=== PATIENT | female | born 1990 | race Caucasian/White ===

== ENCOUNTER 2024-12-04 15:17 | Observation (INO) | payer BC, SELFPAY ==
[2024-11-07 11:17] LABS: Hematocrit 39.5 % (37-47); Hemoglobin 12.0 g/dL (12.0-15.0); Immature Granulocytes Count 0.020 X10^3/uL (0.0-0.0); Mean Corp Hgb Conc 30.4 g/dL (32-36); Mean Corpuscular Volume 65.0 fL (81-99); Mean Platelet Vol. 10.7 fl (6.2-12.0); NRBC Flagged by Analyzer 0 % (0-5); Platelet Count 416 K/mm3 (150-450); RBC Distribution Width CV 17.2 % (11.6-14.6); RBC Distribution Width SD 36.4 fl (35.1-43.9); Red Blood Count 6.08 M/mm3 (4.2-5.4); White Blood Count 7.0 K/mm3 (4.4-11.0)
[2024-11-07 12:06] LABS: AST(SGOT) 20 U/L (<=31); Alanine Aminotransfer ALT/SGPT 12 U/L (<=34); Albumin, Serum 4.7 g/dL (3.5-5.0); Alkaline Phosphatase 48 U/L (35-104); Anion Gap 11 (5-15); BUN 10 mg/dL (4-19); BUN/Creat Ratio 15.5 RATIO (10-20); Calcium,Total 9.2 mg/dL (7.6-11.0); Carbon Dioxide 24.0 mmol/L (21.0-32.0); Chloride 106 mmol/L (98-108); Globulin 2.9 g/dL (2.2-4.2); Glucose 99 mg/dL (70-99); Potassium 4.5 mmol/L (3.3-5.1)
[2024-12-04] VITALS (16 sets, daily range): BP systolic 100–126; BP diastolic 52–93; PULSE 59–144; RESP 16–20; TEMP 36.1–37.6; O2SAT 95–100; BMI 31.2
--- OUTSIDE RECORDS SUMMARY | 2024-12-04 05:41 | XMS RPT_ITS | CCD ---
Author Organization [facility] CliniSyde Care Team Providers Care Regional Environmental Manager Name Role Phone MARY CAPPS Referring Unavailable MARY CAPPS Primary Care Unavailable Melissa Madsen DO Primary Care Provider ESTEFANY ADAIR Attending Unavailable MELISSA MADSEN Primary Care Unavailable ESTEFANY ADAIR Referring Unavailable MELISSA MADSEN Primary Care Unavailable ESTEFANY ADAIR Referring Unavailable ESTEFANY ADAIR Attending Unavailable MELISAS MADSEN Primary Care Unavailable ESTEFANY ADAIR Referring Unavailable ESTEFANY ADAIR Attending Unavailable Dr. Charanjit Cortes MD Primary Care Provider Dr. Charanjit Luke MD Referring Provider Dr. Rohith Oliveira MD Attending Provider [phone] Dr. Charanjit Cortes MD Primary Care Physician Dr. Charanjit Saab MD Referring Provider Dr. Rohith Oliveira MD Attending Physician [phone] MELISSA MADSEN Primary Care Unavailable ANDREW MEYER MD Attending Unavailable MELISSA MADSEN Primary Care Unavailable MELISSA MADSEN Primary Care Unavailable Rohith Roche Attending Unavailable Charanjit Cortes Primary Care Unavailable Charanjit Cortes Referring Unavailable Charanjit Cortes Primary Care Unavailable Charanjit Cortes Referring Unavailable Rohith Roche Attending Unavailable Rohith Roche Attending Unavailable Rohith Roche Referring Unavailable Maye Moore Primary Care Unavailable Rohith Roche Admitting Unavailable Medications Current Medications Medication Drug Class(es) Dates Sig (Normalized) Sig (Original) 24 hr buPROPion hydrochloride 300 mg extended release oral tablet (2 sources) Aminoketone Start: 06-28-2024 take 1 tablet by mouth once daily in the morning Bupropion Hcl 300 mg tablet extended release 24 hr Active 300 mg PO EVERY MORNING June 28, 2024 12:00am Complies with drug therapy Norethindrone-E.Estra diol-Iron (2 sources) Estrogen Start: 06-28-2024 take 1 tablet by mouth once daily Norethindrone-E.E stradiol-Iron (Lo Loestrin Fe) 1 mg-10 mcg (24)/10 mcg (2) tablet Active 1 {tbl} PO daily June 28, 2024 12:00am Complies with drug therapy Start: 06-28-2024 take 1 tablet by nadine th once daily Norethindrone-E.Estradiol-Iron (Lo Loest rin Fe) 1 mg-10 mcg (24)/10 mcg (2) tablet Active 1 {tbl} PO daily June 28, 2024 12:00am phentermine hydrochloride 37.5 mg oral tablet (2 sources) Sympathomimetic Amine Anorectic Start: 06-28-2024 take 1 tablet by mouth once daily in the morning Phentermine 37.5 mg tablet Active 37.5 mg PO EVERY MORNING June 28, 2024 12:00am Complies with drug therapy topiramate 25 mg oral tablet (2 sources) Start: 06-28-2024 take 1 tablet by mouth at bedtime Topiramate 25 mg tablet Active 25 mg PO AT BEDTIME June 28, 2024 12:00am Complies with drug therapy Problems Problem Classification Problem Date Documented Da te Episodic/Chronic Deficiency and other anemia (3 sources) Beta thalassemia trait; Translations: [Thalassemia minor] 06-28-2024 Chronic Deficiency and other anemia (2 sources) Thalassemia minor; Translations: [Thalassemia minor] Onset: 11-08-2024 Chronic Nonmalignant breast conditions (6 sources) Large breast; Translations: [Hypertrophy of breast] Onset: 11-08-2024 06-28-2024 Episodic Other screening for suspected conditions (not mental disorders or infectious disease) (9 sources) Patient encounter status; Translations: [Encounter for screening mammogram for malignant neoplasm of breast] Onset: 01-01-2024 01-01-2024 Episodic Other skin disorders (1 source) Localized swelling, mass and lump, neck; Translations: [Localized swelling, mass and lump, neck] Onset: 07-05-2023 Episodic Residual codes; unclassified (5 sources) Other specified personal risk factors, not elsewhere classified; Translations: [Other specified personal history presenting hazards to health] Onset: 01-01-2024 01-01-2024 Episodic Results Test Name Value Interpretation Reference Range Facility [facility] Physician Progress No alberto 11-13-2024 [facility] Physician Progress Note SUSY ROACH :1990 Registration Date:11/13/2024 Assessment/Plan Patient is a 34-year-old female with a history of heavy menses and family history of breast cancer presenting for management of PCOS. This Visit Diagnosis 1. Well woman exam/(Z01.419: Encounter for gynecological examination (general) (routine) without abnormal findings) Ordered: [facility] Preventive Est Age 18-39 [address], 11/13/2024 10:37:00 EDT, Well woman exam / BRCA gene mutation negative 2. BRCA gene mutation negative/(Z13.71: Encounter for nonprocreative screening for genetic disease carrier status) Ordered: [facility] Preventive Est Age 18-39 [address], 11/13/2024 10:37:00 EDT, Well woman exam / BRCA gene mutation negative PCOS (polycystic ovarian syndrome)/(E28.2: Polycystic ovarian syndrome) - PCOS with insulin resistance, history of heavy menses, weight gain, and prior positive response to Metformin. - Initiated Metformin 500 mg PO once daily with largest meal; instructed to increase to twice daily if tolerated without significant diarrhea. - Advised to avoid dietary sugar due to intolerance and to monitor for gastrointestinal side effects, especially diarrhea. - Reassured patient that Metformin will not interfere with planned breast reduction surgery. - Ordered genetic testing as discussed. - Follow-up in 1 year or sooner if symptoms worsen. Ordered: metFORMIN = Glucophage(metFORMIN 500 mg oral tablet), 500 mg= 1 tabs, ORAL, BID, 11 refills Medication Reconciliation What How Much When Why Instructions New metFORMIN = Glucophage (metFORMIN 500 mg oral tablet) 1 Tabs Oral TWICE A DAY PCOS (polycystic ovarian syndrome) Refills: 11 Ordering Physician: BETSY BENSON FACOG, ANDREW Pickup at [facility] Pharmacy Information [facility]: [address], [place] [id number] [phone] What How Much When Why Comments Stop Taking ethinyl estradiol-norethindrone (Lo Loestrin Fe oral tablet) 1 Tabs Oral DAILY Heavy menses Ordering Physician: BETSY RICHARDSOGANDREW Stop Taking FLUoxetine (FLUoxetine 10 mg oral capsule) Special Instructions: 30 EA, 0 Refill(s), TAKE 1 CAPSULE BY MOUTH ONCE DAILY Stop Taking multivitamin 1 Tabs Oral DAILY Stop Taking Non-Formulary Med (Herbal Supplement) Special Instructions: 30 EA, 0 Refill(s), TAKE 1 TABLET BY MOUTH IN THE MORNING Chief Complaint Here for an annual exam - quit the BC would have a period then BTB scheduled for Breast reduction 12/04/24 LMP 10/30/24 History of Present Illness Disclaimer: The content of this note was generated by an artificial intelligence (AI) language model version 25.Q3.2.0 Patient consented to the use of AI The patient is a 34-year-old female with a history of PCOS, presenting for an annual well woman exam. PCOS and related symptoms The patient reports a history of PCOS with symptoms including heavy periods, random hair growth, and easy weight gain. She describes gaining weight rapidly after discontinuing Mirena, Wegovy, and various forms of control, and notes that she has not been able to lose the weight since. She previously used Metformin after her last , which resulted in the return of her periods and improvement in her symptoms, without significant side effects except for gastrointestinal symptoms when consuming unhealthy foods. She expresses frustration with her body type and believes that insulin resistance significantly affects her weight and hormonal health. She also reports strong sugar cravings, particularly during periods of stress, and notes that her mental health was poor when her periods were irregular. Family history is notable for her mother and grandmother being pre-diabetic despite having smaller body types. She is not currently using any control. Breast health, well woman exam, and family history The patient is scheduled for breast reduction surgery on December 04. She reports a long-standing history of large breasts, which have contributed to back pain and difficulty finding properly fitting bras, especially after three pregnancies and nursing. She recalls being self-conscious about her breast size since adolescence and attributes some of her back discomfort to compensatory postures. She has had three C-sections. Her last mammogram required repeat imaging in February due to overlapping breast tissue, and she was advised to return to routine screening. She underwent BRCA gene testing, which was negative. Family history is notable for pre-diabetes on her mother's side. Review of Systems Constitutional: Positive for weight gain. Head: Negative for mental health concerns. Genitourinary: Positive for heavy periods. Positive for irregular periods. Musculoskeletal: Positive for back pain. Skin: Positive for random hair growth. Physical Exam Vitals & Measurements BP: 110/70 HT: 160 cm WT: 80.1 kg BMI: 31.29 LMP: 10/30/2024 00:00 EDT Depression Screening Scor (more content not included)... Normal [facility] CBC W/Diff, Automatedon 10-15 Absolute Lymph 3.01 X10 3/uL Normal 0.83-4.51 [facility] Comment on above: Performed By: #### L 501.9985, L500.4050, L100.0100 #### [facility] [address] [place], [address] Absolute Neut 3.2 X10 3/uL Normal 2.0-7.7 [facility] Comment on above: Performed By: #### L 501.9985, L500.4050, L100.0100 #### [facility] [address] [place], [address] Basophils/100 WBC (Bld) 1.0 % Normal 0-1 [facility] Comment on above: Performed By: #### L 501.9985, L500.4050, L100.0100 #### [facility] [address] [place], [address] Eosinophils/100 WBC (Bld) 3.2 % Normal 0-5 [facility] Comment on above: Performed By: #### L 501.9985, L500.4050, L100.0100 #### [facility] [address] [place], [address] Erythrocyte distribution width (RBC) [Ratio] 17.2 % High 11.6-14.6 [facility] Comment on above: Performed By: #### L 501.9985, L500.4050, L100.0100 #### [facility] [address] [place], [address] Hematocrit (Bld) [Volume fraction] 39.5 % Normal 37-47 [facility] Comment on above: Performed By: #### L 501.9985, L500.4050, L100.0100 #### [facility] [address] [place], [address] Hemoglobin (Bld) [Mass/Vol] 12.0 g/dL Normal 12.0-15.0 [facility] Comment on above: Performed By: #### L 501.9985, L500.4050, L100.0100 #### [facility] [address] [place], [address] IG% 0.300 Normal 0.0-0.9 [facility] Comment on above: Result Comment: IG% - Immature Granulocytes (promyelocytes, myelocytes and metamyelocytes) > 1% indicates that a LEFT SHIFT is Present. Performed By: #### L 501.9985, L500.4050, L100.0100 #### [facility] [address] [place], [address] Lymphocytes/100 WBC (Bld) 43.2 % High 19-41 [facility] Comment on above: Performed By: #### L 501.9985, L500.4050, L100.0100 #### [facility] [address] [place], [address] MCH (RBC) [Entitic mass] 19.7 pg Low 27.0-32.0 [facility] Comment on above: Performed By: #### L 501.9985, L500.4050, L100.0100 #### [facility] [address] [place], [address] MCHC (RBC) [Mass/Vol] 30.4 g/dL Low 32-36 [facility] Comment on above: Performed By: #### L 501.9985, L500.4050, L100.0100 #### [facility] [address] [place], [address] MCV (RBC) [Entitic vol] 65.0 fL Low 81-99 [facility] Comment on above: Performed By: #### L 501.9985, L500.4050, L100.0100 #### [facility] [address] [place], [address] Monocytes/100 WBC (Bld) 5.9 % Normal 0-10 [facility] Comment on above: Performed By: #### L 501.9985, L500.4050, L100.0100 #### [facility] [address] [place], [address] Neutrophils/100 WBC (Bld) 46.4 % Low 47-70 [facility] Comment on above: Performed By: #### L 501.9985, L500.4050, L100.0100 #### [facility] [address] [place], [address] Nucleated RBC (Bld) [#/Vol] 0 10*3/uL Normal 0-5 [facility] Comment on above: Performed By: #### L 501.9985, L500.4050, L100.0100 #### [facility] [address] [place], [address] Platelet mean volume (Bld) [Entitic vol] 10.7 fL Normal 6.2-12.0 [facility] Comment on above: Performed By: #### L 501.9985, L500.4050, L100.0100 #### [facility] [address] [place], [address] Platelets (Bld) [#/Vol] 416 10*3/uL Normal 150-450 [facility] Comment on above: Performed By: #### L 501.9985, L500.4050, L100.0100 #### [facility] [address] [place], [address] RBC (Bld) [#/Vol] 6.08 10*6/uL High 4.2-5.4 [facility] Comment on above: Performed By: #### L 501.9985, L500.4050, L100.0100 #### [facility] [address] [place], [address] RDW SD 36.4 fl Normal 35.1-43.9 [facility] Comment on above: Performed By: #### L 501.9985, L500.4050, L100.0100 #### [facility] [address] [place], [address] WBC (Bld) [#/Vol] 7.0 10*3/uL Normal 4.4-11.0 [facility] Comment on above: Performed By: #### L 501.9985, L500.4050, L100.0100 #### [facility] [address] [place], [address] Comprehensive Metabolic [facility] 11-07-2024 Albumin [Mass/Vol] 4.7 g/dL Normal 3.5-5.0 [facility] Comment on above: Performed By: #### L 501.9985, L500.4050, L100.0100 #### [facility] [address] [place], [address] Albumin/Globulin [Mass ratio] 1.6 {ratio} Normal 0.9-2.4 [facility] Comment on above: Performed By: #### L 501.9985, L500.4050, L100.0100 #### [facility] [address] [place], [address] ALK PHOS 48 U/L Normal 35-104 [facility] Comment on above: Performed By: #### L 501.9985, L500.4050, L100.0100 #### [facility] [address] [place], [address] ALT [Catalytic activity/Vol] 12 U/L Normal <=34 [facility] Comment on above: Performed By: #### L 501.9985, L500.4050, L100.0100 #### [facility] [address] [place], [address] AST [Catalytic activity/Vol] 20 U/L Normal <=31 [facility] Comment on above: Performed By: #### L 501.9985, L500.4050, L100.0100 #### [facility] [address] [place], [address] Bilirubin [Mass/Vol] 0.27 mg/dL Normal 0.00-1.30 [facility] Comment on above: Performed By: #### L 501.9985, L500.4050, L100.0100 #### [facility] [address] [place], [address] BUN/CRE 15.5 RATIO Normal 10-20 [facility] Comment on above: Performed By: #### L 501.9985, L500.4050, L100.0100 #### [facility] [address] [place], [address] Calcium [Mass/Vol] 9.2 mg/dL Normal 7.6-11.0 [facility] Comment on above: Performed By: #### L 501.9985, L500.4050, L100.0100 #### [facility] [address] [place], [address] Chloride [Moles/Vol] 106 mmol/L Normal 98-108 [facility] Comment on above: Performed By: #### L 501.9985, L500.4050, L100.0100 #### [facility] [address] [place], [address] CO2 [Moles/Vol] 24.0 mmol/L Normal 21.0-32.0 [facility] Comment on above: Performed By: #### L 501.9985, L500.4050, L100.0100 #### [facility] [address] [place], [address] Creatinine [Mass/Vol] 0.67 mg/dL Low 0.70-1.20 [facility] Comment on above: Performed By: #### L 501.9985, L500.4050, L100.0100 #### [facility] [address] [place], [address] GAP 11 Normal 5-15 [facility] Comment on above: Performed By: #### L 501.9985, L500.4050, L100.0100 #### [facility] [address] [place], [address] GFR/1.73 sq M.predicted among non-blacks MDRD (S/P/Bld) [Vol rate/Area] 118 mL/min/{1.73_m2} Normal >60 [facility] Comment on above: Result Comment: mL/m in/1.73m2 CKD-EPI Creatinine Equation (2020) Performed By: #### L 501.9985, L500.4050, L100.0100 #### [facility] [address] [place], [address] Globulin (S) [Mass/Vol] 2.9 g/dL Normal 2.2-4.2 [facility] Comment on above: Performed By: #### L 501.9985, L500.4050, L100.0100 #### [facility] [address] [place], [address] Glucose [Mass/Vol] 99 mg/dL Normal 70-99 [facility] Comment on above: Performed By: #### L 501.9985, L500.4050, L100.0100 #### [facility] [address] [place], [address] Potassium [Moles/Vol] 4.5 mmol/L Normal 3.3-5.1 [facility] Comment on above: Performed By: #### L 501.9985, L500.4050, L100.0100 #### [facility] [address] [place], [address] Sodium [Moles/Vol] 140 mmol/L Normal 133-145 [facility] Comment on above: Performed By: #### L 501.9985, L500.4050, L100.0100 #### [facility] [address] [place], [address] T PROT 7.7 g/dL Normal 5.9-8.4 [facility] Comment on above: Performed By: #### L 501.9985, L500.4050, L100.0100 #### [facility] [address] [place], [address] Urea nitrogen [Mass/Vol] 10 mg/dL Normal 4-19 [facility] Comment on above: Performed By: #### L 501.9985, L500.4050, L100.0100 #### [facility] [address] [place], [address] Hemoglobin A1con 11-07-2024 HbA1c (Bld) [Mass fraction] 5.5 % Normal <=5.6 [facility] Comment on above: Result Comment: Norm al < 5.7 % Prediabetic 5.7 - 6.4 % Diabetic >or= 6.5 % Please note range changes. Performed By: #### L 501.9985, L500.4050, L100.0100 #### [facility] [address] [place], [address] Plastic Surgery Visit Report on 11-07-2024 Plastic Surgery Visit Report [facility]astic Re[facility]ive Surgery [address], [address] [place], [place] [id number] OFFICE VISIT Date of Service: 11/07/24 MR#: [id number] Acct: [id number] Name: SUSY ROACH Rep #: [id number] : 1990 Provider: Dr. Rohith Roche MD Age/Sex: 34/F Location: [facility] Status: Signed Intake Vital Signs 06/28/24 10:08 11/07/24 09:35 Height 5 ft 3 in Weight: 153 lb BMI 27.1 BP 118/80 116/81 H Blood Pressure Location Rt brachial Rt brachial Position Sitting Sitting Respiration 18 18 Pulse 96 104 H Pulse Source Monitor Monitor Pulse Oximetry (%) 99 98 Oxygen Delivery Method room air room air Intake Visit Reasons: f/u- pre op Chief Complaint: Breast reduction Is patient in pain?: No Allergies No Known Allergies Allergy (Unverified 11/07/24 09:35) Medications ???Medication ???Instructions ???Recorded ???Confirmed ???Type bupropion HCl 300 mg 24 hr tablet, 300 mg PO QAM 06/28/24 11/07/24 History extended release norethindrone 1 mg-ethinyl 1 tab PO QDAY 06/28/24 11/07/24 Hi story estradiol 10 mcg (24)-iron 10 mcg(2) tablet (Lo Loestrin Fe) phentermine 37.5 mg tablet 37.5 mg PO QAM 06/28/24 11/07/24 H istory topiramate 25 mg tablet 25 mg PO QHS 06/28/24 11/07/24 His tory PFSH Medical History Beta thalassemia trait Surgical History History of Social History Smoking Status: Former smoker HPI f/u- pre op Details: Breast Reduction Pt c/o: [Macromastia] [Intertrigo] [Shoulder Pain] [Shoulder Grooves]??? [Upper back pain] [Poor Posture] ? Physical therapy for back pain: [ N] ??? Chiropractic treatment: [Y ] ??? Home exercise: [ Y]? NSAID use:[Y ]? Skin ulceration: [ Y] ??? Topical or oral antifungal agents: [Y ] ??? Participation in medically supervised weight loss program: [Y ] ??? More info: Patient has seen a chiropractor for her back problems secondary to the macromastia and this has not helped much. Patient also has significant rashes in the summertime underneath the breasts that are refractory to powders and cause severe skin irritation and pain. ??? Prior breast surgeries: [N ] PAIN: aching pain of upper back ??? BRA SIZE: [DDD ] ??? DESIRED??? SIZE: [ C] ??? OB HISTORY: PARA: [3 ] :??? [Y ] PLAN FOR FUTURE PREGNANCIES: [N ] ??? HISTORY OF BREAST DISEASE: [ N] PRIOR MAMMOGRAM: Patient has had a mammogram for cancer screening. FAMILY HISTORY OF BREAST CANCER: Grandmother and her aunt on her father's side had breast cancer. Patient is a former smoker has not smoked for several years She has beta thalassemia trait does not receive any treatment for this Patient is currently on weight loss medication phentermine and topiramate Patient has been stable and her weight however between 145 and 155 for the past year and is not interested in losing a significant amount of extra weight at this point. BMI is 27.1 CURRENT ENCOUNTER, 07 Nov 2024: Patient doing well overall. She has been approved for a breast reduction by her insurance company. She is here to talk about preoperative labs and PCP clearance, as well as the risks benefits and alternatives to surgery. Exam Details EXAM: A O x3, NAD Female charge 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 L: Grade [ 3] Medially displaced nipple: [No ] Note: measurements are in centimeters SN to NIPPLE:? L: [ 31]?R: [ 31] IMF to NIPPLE: ? L: [13 ] ? R: [ 14] WIDTH: ? L: [ 17] ? R: [18 ] I did not feel any new masses or lymphadenopathy on today's exam and the exam is stable since last visit Coding Level of Care Code No Charge Diagnoses Macromastia N62 Comment This was a visit for preoperative counseling, decision already made to have surgery Assessment and Plan (No Qualifiers) Assessment and Plan (1) Macromastia: Status: Acute Plan: I talked the patient extensively again today about breast reduction surgery. Based on the Schnur scale, I could remove 390 g of breast tissue from each side. Patient and I talked about the risk of wound healing complications as well as the risks of nipple ischemia/necrosis (with nipple wound healing problems), possibility of need for free nipple grafts, possibility of alteration in breast sensation and alteration in nipple sensation/loss of nipple sensation and permanent numbness, as well as fat necrosis, infection, bleeding, worsening of pain, failur (more content not included)... Normal [facility] Plastic Surgery Visit Report on 06-28-2024 Plastic Surgery Visit Report [facility] Surgery [address], [address] [place] [address] OFFICE VISIT Date of Service: 06/28/24 MR#: [id number] Acct: [id number] Name: SUSY ROACH Rep #: [id number] : 1990 Provider: Dr. Rohith Roche MD Age/Sex: 33/F Location: [facility] Status: Signed Intake Vital Signs 06/28/24 10:08 Height 5 ft 3 in Weight: 153 lb BMI 27.1 BP 118/80 Blood Pressure Location Rt brachial Position Sitting Respiration 18 Pulse 96 Pulse Source Monitor Pulse Oximetry (%) 99 Oxygen Delivery Method room air Intake Visit Reasons: BREAST REDUCTION Chief Complaint: Breast reduction Allergies No Known Allergies Allergy (Unverified 06/28/24 09:57) Medications ???Medication ???Instructions ???Recorded ???Confirmed ???Type bupropion HCl 300 mg 24 hr tablet, 300 mg PO QAM 06/28/24 06/28/24 History extended release norethindrone 1 mg-ethinyl 1 tab PO QDAY 06/28/24 06/28/24 Hi story estradiol 10 mcg (24)-iron 10 mcg(2) tablet (Lo Loestrin Fe) phentermine 37.5 mg tablet 37.5 mg PO QAM 06/28/24 06/28/24 H istory topiramate 25 mg tablet 25 mg PO QHS 06/28/24 06/28/24 His tory [facility] Medical History (Updated 06/28/24 @ 10:[address] Rohith Roche MD) Beta thalassemia trait Surgical History (Updated 06/28/24 @ 09:56 by Carol Alczaar) History of Social History (Updated 06/28/24 @ 09:57 by Carol Alcazar) Smoking Status: Former smoker HPI BREAST REDUCTION Details: Breast Reduction Pt c/o: [Macromastia] [Intertrigo] [Shoulder Pain] [Shoulder Grooves]??? [Upper back pain] [Poor Posture] ? Physical therapy for back pain: [ N] ??? Chiropractic treatment: [Y ] ??? Home exercise: [ Y]? NSAID use:[Y ]? Skin ulceration: [ Y] ??? Topical or oral antifungal agents: [Y ] ??? Participation in medically supervised weight loss program: [Y ] ??? More info: Patient has seen a chiropractor for her back problems secondary to the macromastia and this has not helped much. Patient also has significant rashes in the summertime underneath the breasts that are refractory to powders and cause severe skin irritation and pain. ??? Prior breast surgeries: [N ] PAIN: aching pain of upper back ??? BRA SIZE: [DDD ] ??? DESIRED??? SIZE: [ C] ??? OB HISTORY: PARA: [3 ] :??? [Y ] PLAN FOR FUTURE PREGNANCIES: [N ] ??? HISTORY OF BREAST DISEASE: [ N] PRIOR MAMMOGRAM: Patient has had a mammogram for cancer screening. FAMILY HISTORY OF BREAST CANCER: Grandmother and her aunt on her father's side had breast cancer. Patient is a former smoker has not smoked for several years She has beta thalassemia trait does not receive any treatment for this Patient is currently on weight loss medication phentermine and topiramate Patient has been stable and her weight however between 145 and 155 for the past year and is not interested in losing a significant amount of extra weight at this point. BMI is 27.1 ROS General General: Yes good health; No fatigue, fever(s) or weight loss HENMT HENMT: No rhinitis, sore throat/mouth sore, nasal congestion, contacts or glaucoma Endo Endocrine: No thyroid disease, polydipsia, heat intolerance, cold intolerance, hepatitis or excessive urine Skin Skin: No Bleeding, bruising, changing moles or suspicious lesion Musc Musculoskeletal: Yes muscle weakness and back pain; No joint pain, joint stiffness, osteoarthritis or Muscle aches/ myalgia Neuro Neurological: No headache(s), No lightheadedness and No numbness Cardio Cardiovascular: No chest pain, pacemaker, fatigue or shortness of breat with exertion Psych Psychiatric: Yes anxiety; No depression or claustrophobia Resp Respiratory: No spitting up, shortness of breath, sleep apnea, asthma, emphysema, TB, Cough or Smoker Gastro Gastrointestinal: No diarrhea, constipation, blood in stool, nausea, vomiting or abdominal bloating Hesham Hematologic: No anemia, No bleeding and No abnormal bleeding Genitourinary: No urinary frequency, blood in urine or incontinence Exam Details EXAM: A O x3, NAD Female charge 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 L: Grade [ 3] Medially displaced nipple: [No ] Note: measurements are in centimeters SN to NIPPLE:? L: [ 31]?R: [ 31] IMF to NIPPLE: ? L: [13 ] ? R: [ 14] WIDTH: ? L: [ 17] ? R: [18 ] Coding Level of Care Code Off vis,new,level 4 Diagnoses Macromastia N62 Assessment and Plan (No Qualifiers) Assessment and Plan (1) Macromastia: Status: Acute Plan: I diana (more content not included)... Normal [facility] Physician Progress No alberto 04-29-2024 [facility] Physician Progress Note SUSY ROACH :1990 Registration Date:04/29/2024 Assessment/Plan This Visit Diagnosis 1. Heavy menses N92.0 Ordered: ethinyl estradiol-norethindrone (Lo Loestrin Fe oral tablet), 1 tabs, ORAL, DAILY, 3 refills [facility] Ultrasound, transvaginal [id number], 04/29/2024 11:04:00 EDT, Heavy menses, 1 US TV ECHO NON OB OFFICE READ, 04/29/2024 11:08:00 EDT, Routine, OTHER REASON, see diagnosis, Ambulatory, Isolation Precautions: NONE, Heavy menses, [id number] Medication Reconciliation What How Much When Why Instructions New ethinyl estradiol-norethindrone (Lo Loestrin Fe oral tablet) 1 Tabs Oral DAILY Heavy menses Refills: 3 Pickup at [facility] Unchanged FLUoxetine (FLUoxetine 10 mg oral capsule) 30 EA, 0 Refill(s), TAKE 1 CAPSULE BY MOUTH ONCE DAILY Unchanged multivitamin 1 Tabs Oral DAILY Unchanged Non-Formulary Med (Herbal Supplement) 30 EA, 0 Refill(s), TAKE 1 TABLET BY MOUTH IN THE MORNING Pharmacy Information [facility]: [address], [place] [id number] [phone] What How Much When Why Comments Stop Taking drospirenone (Slynd 4 mg oral tablet) 1 Tabs Oral DAILY BCP ( control pills) initiation Stop Taking multivitamin, 1 Tabs Oral DAILY Stop Taking semaglutide (Wegovy (1.7 mg dose) subcutaneous solution) 3 mL, 0 Refill(s), Inject 1.7 mg into the skin every 7 days Chief Complaint Here for US f/u heavy menses - LMP 04/03/24 tried 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 is done having children History of Present Illness Susy is a 33 year old here for heavy menstrual bleeding. She had a lot of BTB on slynd. She does vape. We discussed a trial of loloestrin to see if her periods improve. Her ultrasound was normal. We discussed that she is still too young for ablation. Her cycles interfere with her daily activities. She occasionally has postcoital bleeding. Physical Exam Vitals & Measurements BP: 116/60 HT: 160 cm WT: 72.1 kg BMI: 28.16 LMP: 04/03/2024 00:00 EST Depression Screening Scores No Depression Screening data available for this encounter. Fall Risk Assessment Is the patient ambulatory (mobile): Yes (04/29/24 11:39:00) Have you had a fall within the past: No (04/29/24 11:39:00) Have you had 2 or more falls in the past: No (04/29/24 11:39:00) [employer]MER Additional Details Menstrual History Menstrual StatusMenarcheal Last Menstrual Phpvdh9104/03/2024 [employer] Screening Date of Last Pap Smear11/06/2023 Last Pap Result, Pt StatedNegative Last Pap Result CommentNeg HPV Date of Last Mammogram, Pt Swpcos20/18/24 mammo-L Br asymmetry Last Mammography Result, Pt StatedBenign Last Mammography Result CommentL Diag benign 03/07/24 Contraception Contraception MethodSterilization for contraception Sterilization TypeTubal ligation OB History History (2,0,0,3) # 1 Baby 1 Outcome Date: 08/16/2011 Outcome or Result: Gest Age: 38 weeks Outcome: Live Sex: Female Wt: 3487 g Maternal Complications: Failed induction; Dilated to 4 cm [facility]'s Name: [facility]: [facility] Dr Jimenez # 2 Baby 1 Outcome Date: 07/10/2018 Outcome or Result: Gest Age: 39 weeks 5 days Outcome: Live Sex: Female Wt: 3997 g Maternal Complications: Beta thalassaemia; GDM (gestational diabetes mellitus) Complications: transposition of the great vessels; Intramural Coronary Artery; VSD Child's Name: [facility]: [facility] Comment: DTGA with Intramural Coronary Artery, VSD # 3 Baby 1 Outcome Date: 04/14/2021 Outcome or Result: , low transverse Gest Age: 39 weeks 3 days Outcome: Live Sex: Male Wt: 3080 g Maternal Complications: GDM (gestational diabetes mellitus); Beta thalassaemia Complications: None [facility]est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 Current tobacco use Family history of breast cancer FH: breast cancer Heavy menses History of gestational diabetes Increased risk of breast cancer Historical GDM (gestational diabetes mellitus) Previous section complicating , with delivery Subchorionic hemorrhage Supervision of other normal , antepartum Procedure/Surgical History Csection w/ Bilateral Salpingectomy: 2021 Last pap - Negative: 10/05/20 Section.: 07/10/18 : 2011 Medications ethinyl estradiol-norethindrone (Lo Loestrin Fe oral tablet), 1 tabs, ORAL, DAILY, 3 refills FLUoxetine(FLUoxetine 10 mg oral capsule) multivitamin, 1 tabs, ORAL, DAILY Non-Formulary Med(Herbal Supplement) Allergies No Known Medication A (more content not included)... Normal [facility] US TV ECHO NON OB OFFICE JESSICA Coronado 04-29-2024 US TV ECHO NON OB OFFICE READ Indication: Heavy menstrual bleeding LMP 04/03/24 A transvaginal ultrasound was performed. The uterus was anteverted and measured 9.6 by 7 by 5.2 cm. The endometrium was 10 mm. The cervix appeared normal. The right ovary appeared normal and measured 1.7 by 1.5 by 1.9 cm. The left ovary appeared normal and measured 3.9 by 3.3 by 2.2 cm. There was a 1.6 by 1.2 by 1.7 cm simple follicle. There was no free fluid in the pelvis. Impression: Normal pelvic ultrasound. Normal [facility] Comment on above: Order Comment: Order ed on Fin# [id number] Result Comment: Tech nologist: JOSE LUIS Dictated By: ANDREW MEYER MD, FACOG Signed By: ANDREW MEYER MD, FACOG Transcribed: 04.29.2024 11:45 Signed Out: 04/29/24 11:45:26 Phone [place] 04-15-2024 Phone Msg - From: Sierra Fatima Sent: 04/15/2024 13:38:00 EST Subject: RESCHEDULE Caller Name: SUSY ROACH; Caller Number: H L/V/M TO CALL BACK AND RESCHEDULE HER APPT. WITH DR. Leandro RUSSO TO OUT OF OFFICE. SHE DOES HAVE AN U/S ON THE DAY 04/24/24 WE CAN KEEP THAT APPT. BUT MOVE THE PHYSICIAN APPT Normal [facility] Phone Msgon 03-08-2024 Phone Msg - From: ESTEFANY ADAIR CNP Sent: 03/08/2024 09:03:39 EST Subject: Normal mammo/bleeding concerns Caller Name: SUSY ROACH; Caller Number: H Discussed normal diagnostic mammogram and f/u at annual mammo in December. Also discussed fast MRI-will consider. Peña not working well- is on 4th month and bleeding is coming every 2 weeks. she would like to schedule a pelvic US and possible SIS. Will schedule Normal [facility] DBT Breast - left diagnostic on 03-07-2024 No mass or focal abnormality is seen. Markings on images: BB's = Nipples; skin lesions Open torres martinez = Palpable Line = Scar ASSESSMENT: Category 1 Negative RECOMMENDATION: Return to normal screening Bilateral CANCER RISK ASSESSMENT: This risk assessment is based on patient provided information collected in a risk survey taken at the time of this examination. LIFETIME BREAST CANCER RISK: Oscar 8: 19.59% - If greater than or equal to 20%, consider annual mammogram and annual screening Breast MRI or follow up in high risk clinic. Is the patient at elevated risk based on the HBOC criteria? Yes (Hereditary Breast and Ovarian Cancer) - If Yes, consider genetic counseling and testing with high risk follow up Is the patient at elevated risk based on the Gaona Syndrome criteria? No - If Yes, consider genetic counseling and testing with high risk follow up. Report Dictated on Electronically Signed By: Melissa Brown MD Electronically Signed Date/Time: 03/07/2024 1:20 PM [facility] Patient Name: SUSY ROACH : 1990 Exam Date/Time: 03/07/2024 12:51 Procedure: BI MAMMOGRAM DIAGNOSTIC TOMOSYNTHESIS LEFT Ordering Provider: ADAIR NICOLE Reason For Exam: This exam was performed at [facility] [address] [place] [address] RISK ALERT: The Cancer Risk Assessment scores below the recommendation of this report contain an outcome above the normal risk range. PATIENT CANCER HISTORY: No Personal History of Cancer FAMILY CANCER HISTORY: Maternal Grandfather Brain Cancer Paternal Grandmother Breast Cancer age 55 Paternal Aunt Breast Cancer Paternal Aunt Breast Cancer age 35 Prior study Comparisons: 01/01/2024 Image views: 2D CC and MLO views were acquired. 3D CC and MLO views were acquired. Tissue Density: BIRADS B - There are scattered areas of fibroglandular density. Images were reviewed with CAD. Findings: The patient is a 33-year-old who was recalled from a screening mammogram for an asymmetry in the posterior medial left breast only in the cc view. A diagnostic mammogram was performed. No spiculated masses or parenchymal distortion is seen. The area of asymmetry persists in the cc projection however there is no corresponding abnormality in an orthogonal view or rolled views. The asymmetry is felt to be related to overlapping tissue. The patient may resume routine screening mammograms [facility] Melissa Brown MD - 03/07/2024 Patient Name: SUSY ROACH : 1990 Exam Date/Time: 03/07/2024 12:51 Procedure: BI MAMMOGRAM DIAGNOSTIC TOMOSYNTHESIS LEFT Ordering Provider: ADAIR NICOLE Reason For Exam: This exam was performed at [facility] [address] [place] [address] RISK ALERT: The Cancer Risk Assessment scores below the recommendation of this report contain an outcome above the normal risk range. PATIENT CANCER HISTORY: No Personal History of Cancer FAMILY CANCER HISTORY: Maternal Grandfather Brain Cancer Paternal Grandmother Breast Cancer age 55 Paternal Aunt Breast Cancer Paternal Aunt Breast Cancer age 35 Prior study Comparisons: 01/01/2024 Image views: 2D CC and MLO views were acquired. 3D CC and MLO views were acquired. Tissue Density: BIRADS B - There are scattered areas of fibroglandular density. Images were reviewed with CAD. Findings: The patient is a 33-year-old who was recalled from a screening mammogram for an asymmetry in the posterior medial left breast only in the cc view. A diagnostic mammogram was performed. No spiculated masses or parenchymal distortion is seen. The area of asymmetry persists in the cc projection however there is no corresponding abnormality in an orthogonal view or rolled views. The asymmetry is felt to be related to overlapping tissue. The patient may resume routine screening mammograms IMPRESSION: No mass or focal abnormality is seen. Markings on images: BB's = Nipples; skin lesions Open torres martinez = Palpable Line = Scar ASSESSMENT: Category 1 Negative RECOMMENDATION: Return to normal screening Bilateral CANCER RISK ASSESSMENT: This risk assessment is based on patient provided information collected in a risk survey taken at the time of this examination. LIFETIME BREAST CANCER RISK: Oscar 8: 19.59% - If greater than or equal to 20%, consider annual mammogram and annual screening Breast MRI or follow up in high risk clinic. Is the patient at elevated risk based on the HBOC criteria? Yes (Hereditary Breast and Ovarian Cancer) - If Yes, consider genetic counseling and testing with high risk follow up Is the patient at elevated risk based on the Gaona Syndrome criteria? No - If Yes, consider genetic counseling and testing with high risk follow up. Report Dictated on Electronically Signed By: Melissa Brown MD Electronically Signed Date/Time: 03/07/2024 1:20 PM EST [facility] Radiology Study observation (narrative) [facility] DBT Breast - left diagnostic Ordered By: Melissa Brown on 03-07-2024 [employer] Work Phone: DBT Breast - bilateral scree ningOrdered By: Susu Carlisle on 01-01-2024 Interpretation and review of laboratory results Abnormal [facility] Phone: [facility] Phone: DBT Breast - bilateral scree ningon 11-18-2024 Left breast asymmetr y. A diagnostic left mammogram is recommended with ultrasound if indicated. ASSESSMENT: Category 0 Incomplete: need additional imaging evaluation RECOMMENDATION: Follow-up diagnostic mammogram Left And breast ultrasound if necessary. CANCER RISK ASSESSMENT: This risk assessment is based on patient provided information collected in a risk survey taken at the time of this examination. LIFETIME BREAST CANCER RISK: Oscar 8: 19.59% - If greater than or equal to 20%, consider annual mammogram and annual screening Breast MRI or follow up in high risk clinic. Is the patient at elevated risk based on the HBOC criteria? Yes (Hereditary Breast and Ovarian Cancer) - If Yes, consider genetic counseling and testing with high risk follow up Is the patient at elevated risk based on the Gaona Syndrome criteria? No - If Yes, consider genetic counseling and testing with high risk follow up. Report Dictated on Electronically Signed By: Susu Carlisle MD Electronically Signed Date/Time: 01/01/2024 1:03 PM [facility] RADIOLOGY SYSTEM Patient Name: SUSY ROACH : 1990 Exam Date/Time: 01/01/2024 08:42 Procedure: BI MAMMOGRAM SCREENING TOMOSYNTHESIS BILATERAL Ordering Provider: ADAIR NICOLE Reason For Exam: This exam was performed at: [facility] [place] [address] RISK ALERT: The Cancer Risk Assessment scores below the recommendation of this report contain an outcome above the normal risk range. PATIENT CANCER HISTORY: No Personal History of Cancer FAMILY CANCER HISTORY: Maternal Grandfather Brain Cancer Paternal Grandmother Breast Cancer age 55 Paternal Aunt Breast Cancer Paternal Aunt Breast Cancer age 35 Image views: 2D Bilateral CC and MLO views were acquired. 3D Bilateral CC and MLO views were acquired. Images were reviewed with CAD. Markings on images: BB's = Nipples; skin lesions Open torres martinez = Palpable Line = Scar COMPARISON: There were no priors available for comparison. TISSUE DENSITY: BIRADS B - There are scattered areas of fibroglandular density. FINDINGS: This is the patient's first mammogram. There is asymmetry posteriorly within the medial left breast seen on the CC view only. No additional suspicious findings are seen in either breast. [facility] RADIOLOGY SYSTEM Susu Carlisle MD - 01/01/2024 [facility]USY [facility] 1990 [id number] Exam Date/Time: 01/01/2024 08:42 Procedure: BI MAMMOGRAM SCREENING TOMOSYNTHESIS BILATERAL Ordering Provider: ADAIR NICOLE Reason For Exam: This exam was performed at: [facility] [address] [place] [address] RISK ALERT: The Cancer Risk Assessment scores below the recommendation of this report contain an outcome above the normal risk range. PATIENT CANCER HISTORY: No Personal History of Cancer FAMILY CANCER HISTORY: Maternal Grandfather Brain Cancer Paternal Grandmother Breast Cancer age 55 Paternal Aunt Breast Cancer Paternal Aunt Breast Cancer age 35 Image views: 2D Bilateral CC and MLO views were acquired. 3D Bilateral CC and MLO views were acquired. Images were reviewed with CAD. Markings on images: BB's = Nipples; skin lesions Open torres martinez = Palpable Line = Scar COMPARISON: There were no priors available for comparison. TISSUE DENSITY: BIRADS B - There are scattered areas of fibroglandular density. FINDINGS: This is the patient's first mammogram. There is asymmetry posteriorly within the medial left breast seen on the CC view only. No additional suspicious findings are seen in either breast. IMPRESSION: Left breast asymmetry. A diagnostic left mammogram is recommended with ultrasound if indicated. ASSESSMENT: Category 0 Incomplete: need additional imaging evaluation RECOMMENDATION: Follow-up diagnostic mammogram Left And breast ultrasound if necessary. CANCER RISK ASSESSMENT: This risk assessment is based on patient provided information collected in a risk survey taken at the time of this examination. LIFETIME BREAST CANCER RISK: NoeerAlex 8: 19.59% - If greater than or equal to 20%, consider annual mammogram and annual screening Breast MRI or follow up in high risk clinic. Is the patient at elevated risk based on the HBOC criteria? Yes (Hereditary Breast and Ovarian Cancer) - If Yes, consider genetic counseling and testing with high risk follow up Is the patient at elevated risk based on the Gaona Syndrome criteria? No - If Yes, consider genetic counseling and testing with high risk follow up. Report Dictated on Electronically Signed By: Susu Carlisle MD Electronically Signed Date/Time: 01/01/2024 1:03 PM EST [facility] Radiology Study observation (narrative) [facility] US SOFT TISSUE LIMITED AREAo n 07-05-2023 US SOFT TISSUE LIMITED AREA EXAMINATION: SOFT TISSUE ULTRASOUND 07/05/2023 9:03 am COMPARISON: None. HISTORY: ORDERING SYSTEM PROVIDED HISTORY: Subcutaneous mass of neck TECHNOLOGIST PROVIDED HISTORY: This procedure can be scheduled via MyChart. Reason for exam:->mass posterior neck What reading provider will be dictating this exam?->CRC FINDINGS: Grayscale as well as duplex color ultrasound of the midline to left side of the neck was performed. There are no subcutaneous masses. No focal fluid collections. In the region of the patient's "palpable" palpable lump the does appear to be some minimal edema and some disturbance of the subjacent fascia. However no definitive mass or lesion is identified. IMPRESSION: PATIENT DESCRIBES INTERMITTENT SWELLING ON THE BACK SIDE OF THE NECK. PATIENT DID PROVIDE PHOTOGRAPHIC IMAGE OF THIS AREA WHEN THIS AREA SWELLING WAS CLEARLY PALPABLE BY HER. SHE SAID THE TIME THE WAS FREELY MOBILE NONPAINFUL AND NO DISCHARGE IS NOTED. CURRENT EXAM SHOWS NO FOCAL SONOGRAPHIC ABNORMALITY. ADVISED PATIENT THAT SHOULD THE PALPABLE SWELLING RECURRED THEN TO PLEASE CALL ULTRASOUND DEPARTMENT AND ARRANGED FOR IMMEDIATE SONOGRAPHIC EXAMINATION OF THE AREA. ALTERNATIVELY FOR MORE DEFINITIVE EXAMINATION COULD CONSIDER A LIMITED MRI OF THE SOFT TISSUE OF THE NECK. Interpreted by: Chava Bass MD Signed by: Chava Bass MD 07/05/23 Final result Normal [facility] CBC With Platelet and Differ entialon 06-26-2023 Anisocytosis Ql (Bld) 1+ Normal [facility] Comment on above: Performed By: #### C BCWD #### [facility] [address] [facility] [address] Microcytic 1+ Normal [facility] Comment on above: Performed By: #### C BCWD #### [facility] [address] [place] [address] Ovalocytes 1+ Normal [facility] Comment on above: Performed By: #### C BCWD #### [facility] [address] [place] [address] Poikilocytosis 2+ Normal [facility] Comment on above: Performed By: #### C BCWD #### [facility] [address] [place] [address] Basophils (Bld) [#/Vol] 0.0 10*3/uL Normal 0.0-0.2 [facility] Comment on above: Performed By: #### C BCWD #### [facility] [address] [place] [address] Basophils/100 WBC (Bld) 0.5 % Normal [facility] Comment on above: Performed By: #### C BCWD #### [facility] [address] [place] [address] Eosinophils (Bld) [#/Vol] 0.2 10*3/uL Normal 0.0-0.7 [facility] Comment on above: Performed By: #### C BCWD #### [facility] [address] [place] [address] Eosinophils/100 WBC (Bld) 2.6 % Normal [facility] Comment on above: Performed By: #### C BCWD #### [facility] [address] [place] [address] Erythrocyte distribution width (RBC) [Ratio] 15.9 % Critically high 11.5-14.5 [facility] Comment on above: Performed By: #### C BCWD #### [facility] [address] [place] [address] Hematocrit (Bld) [Volume fraction] 42.9 % Normal 37.0-47.0 [facility] Comment on above: Performed By: #### C BCWD #### [facility] [address] [place] [address] Hemoglobin (Bld) [Mass/Vol] 13.3 g/dL Normal 12.0-16.0 [facility] Comment on above: Performed By: #### C BCWD #### [facility] [address] [place] [address] Lymphocytes (Bld) [#/Vol] 3.1 10*3/uL Normal 1.0-4.8 [facility] Comment on above: Performed By: #### C BCWD #### [facility] [address] [place] [address] Lymphocytes/100 WBC (Bld) 40.3 % Normal [facility] Comment on above: Performed By: #### C BCWD #### [facility] [address] [place] [address] MCH (RBC) [Entitic mass] 21.2 pg Low 27.0-31.3 [facility] Comment on above: Performed By: #### C BCWD #### [facility] [address] [place] [address] MCHC 31.0 % Low 33.0-37.0 [facility] Comment on above: Performed By: #### C BCWD #### [facility] [address] [place] [address] MCV (RBC) [Entitic vol] 68.4 fL Low 79.4-94.8 [facility] Comment on above: Performed By: #### C BCWD #### [facility] [address] [place] [address] Monocytes (Bld) [#/Vol] 0.5 10*3/uL Normal 0.2-0.8 [facility] Comment on above: Performed By: #### C BCWD #### [facility] [address] [place] [address] Monocytes/100 WBC (Bld) 6.6 % Normal [facility] Comment on above: Performed By: #### C BCWD #### [facility] [address] [place] [address] Neutrophils (Bld) [#/Vol] 3.9 10*3/uL Normal 1.4-6.5 [facility] Comment on above: Performed By: #### C BCWD #### [facility] [address] [place] [address] Neutrophils/100 WBC (Bld) 49.6 % Normal [facility] Comment on above: Performed By: #### C BCWD #### [facility] [address] [place] [address] Platelets (Bld) [#/Vol] 319 10*3/uL Normal 130-400 [facility] Comment on above: Performed By: #### C BCWD #### [facility] [address] [place] [address] RBC (Bld) [#/Vol] 6.27 10*6/uL Critically high 4.20-5.40 [facility] Comment on above: Performed By: #### C BCWD #### [facility] [address] [place] [address] WBC (Bld) [#/Vol] 7.8 10*3/uL Normal 4.8-10.8 [facility] Comment on above: Performed By: #### C BCWD #### [facility] [address] [place] [address] Comprehensive Metabolic Pane saqib 06-26-2023 Albumin [Mass/Vol] 4.6 g/dL Normal 3.5-4.6 [facility] Comment on above: Performed By: #### C MP #### [facility] [address] [place] [address] ALP [Catalytic activity/Vol] 38 U/L Low 40-130 [facility] Comment on above: Performed By: #### C MP #### [facility] [address] [place] [address] ALT [Catalytic activity/Vol] 9 U/L Normal 0-33 [facility] Comment on above: Performed By: #### C MP #### [facility] [address] [place] [address] Anion gap [Moles/Vol] 13 mmol/L Normal 9-15 [facility] Comment on above: Performed By: #### C MP #### [facility] [address] [place] [address] AST [Catalytic activity/Vol] 14 U/L Normal 0-35 [facility] Comment on above: Performed By: #### C MP #### [facility] [address] [place] [address] Bilirubin [Mass/Vol] 0.4 mg/dL Normal 0.2-0.7 [facility] Comment on above: Performed By: #### C MP #### [facility] [address] [place] [address] Calcium [Mass/Vol] 9.1 mg/dL Normal 8.5-9.9 [facility] Comment on above: Performed By: #### C MP #### [facility] [address] [place] [address] Chloride [Moles/Vol] 104 mmol/L Normal 95-107 [facility] Comment on above: Performed By: #### C MP #### [facility] [address] [place] [address] CO2 [Moles/Vol] 21 mmol/L Normal 20-31 [facility] Comment on above: Performed By: #### C MP #### [facility] [address] [place] [address] Creatinine [Mass/Vol] 0.70 mg/dL Normal 0.50-0.90 [facility] Comment on above: Performed By: #### C MP #### [facility] [address] [place] [address] GFR >90.0 Normal >60 [facility] Comment on above: Result Comment: Ike atric calculator link https://www.kidney.org/professionals/kdoqi/gfr_calculatorped Effective Nov 15, 2021 These results are not intended for use in patients <18 years of age. eGFR results are calculated without a race factor using the 2020 CKD-EPI equation. Careful clinical correlation is recommended, particularly when comparing to results calculated using previous equations. The CKD-EPI equation is less accurate in patients with extremes of muscle mass, extra-renal metabolism of creatinine, excessive creatinine ingestion, or following therapy that affects renal tubular secretion. Performed By: #### C MP #### [facility] [address] [place] [address] Globulin (S) [Mass/Vol] 2.8 g/dL Normal 2.3-3.5 [facility] Comment on above: Performed By: #### C MP #### [facility] [address] [place] [address] Glucose [Mass/Vol] 82 mg/dL Normal 70-99 [facility] Comment on above: Performed By: #### C MP #### [facility] [address] [place] [address] Potassium [Moles/Vol] 4.7 mmol/L Normal 3.4-4.9 [facility] Comment on above: Performed By: #### C MP #### [facility] [address] [place] [address] Protein [Mass/Vol] 7.4 g/dL Normal 6.3-8.0 [facility] Comment on above: Performed By: #### C MP #### [facility] [address] [place] [address] Sodium [Moles/Vol] 138 mmol/L Normal 135-144 [facility] Comment on above: Performed By: #### C MP #### [facility] [address] [place] [address] Urea nitrogen [Mass/Vol] 14 mg/dL Normal 6-20 [facility] Comment on above: Performed By: #### C MP #### [facility] [address] [place] [address] Lipid Panelon 06-26-2023 Cholesterol [Mass/Vol] 152 mg/dL Normal 0-199 [facility] Comment on above: Result Comment: ATP III Cholesterol classification is Desirable. Performed By: #### L IPID #### [facility] [address] [place] [address] Cholesterol in HDL [Mass/Vol] 41 mg/dL Normal 40-59 [facility] Comment on above: Result Comment: ATP III HDL Cholesterol Classification is Desirable. Expected Values: Males: >55 = No Risk 35-55 = Moderate Risk <35 = High Risk Females: >65 = No Risk 45-65 = Moderate Risk <45 = High Risk NCEP Guidelines: Third Report June 2000 >59 = negative risk factor for CHD <40 = major risk factor for CHD Performed By: #### L IPID #### [facility] [address] [place] [address] Cholesterol in LDL [Mass/Vol] 98 mg/dL Normal 0-129 [facility] Comment on above: Result Comment: ATP III LDL Classification is Optimal. Performed By: #### L IPID #### [facility] [address] [place] [address] Triglyceride [Mass/Vol] 63 mg/dL Normal 0-150 [facility] Comment on above: Result Comment: ATP III Triglycerides Classification is Normal. Performed By: #### L IPID #### [facility] [address] [place] [address] Progress Noteon 12-09-2020 [employer] Authentication Interface Message Text New patient 12/10/2020 RE: Susy Roach : 1990 AGE: 30 y.o. [facility]#: [id number] Gestational Age: 21 Weeks Delivery Hospital: [facility] Reason for visit: Chief Complaint Patient presents with ECHO for previous child with D-TGA Other indications:Family Hx of CHD OB History 2 Para 2 Term 2 0 AB 0 Living 2 SAB 0 IAB 0 Ectopic 0 Multiple 0 Live Births 2 Counseling and/or coordination of care (face to face time in the office/outpatient setting or floor/unit time in the hospital) was greater than 40 minutes which is more than 50% of the total time of 60 minutes spent on the encounter. In addition, the following items were performed before, during and after this visit: Synthesis of current imaging findings. Results for orders placed or performed in visit on 12/09/20 Echo New Narrative [facility] [place] [place] [address] [email or web address] Echocardiogram Report M-mode, complete 2D, complete spectral Doppler, and color Doppler PATIENT: Susy Roach STUDY DATE/TIME: Dec 09 2020 12:06PM HEIGHT: : 1990 WEIGHT: 90.7kg AGE: 30yr BSA/BMI: / GENDER: F BP: 128 / 60 LOCATION: [facility] REFERRING PHYSICIAN: Lorenzo Shultz Meghan J ORDERING PROVIDER: Allyssa Ventura READING PHYSICIAN: ESME Escobedo CONSUMER MARKETING SPECIALIST: Josefa Trejo RDCS SUMMARY: No significant congenital heart disease identified. 1. Normal echocardiogram. 2. Normal biventricualr size and function. Normal three vessel view. Normal ventricloarterial connections. Normal systemic and pulmonary venous connections. 3. This study is limited in evaluating minor valve abnormalities, septal defects, partial anomalous pulmonary venous connection, and aortic arch abnormalities. 4. The above findings, including the limitations, were discussed with the patient. Recommendations: follow-up if claim investigator hears a heart murmur or otherwise clinically indicated. REASON FOR EXAM: Previoius child with TGA. 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 STUDY AND PROCEDURE DATA: Procedure Description: New ([id number]) . Study status: Routine. Location: lab. Procedure: Transabdominal echocardiography for congenital heart disease evaluation. Patient status: Outpatient. Blood pressure: 128/60 Maternal age: 30yr. : 3. Parity: 2. Expected delivery date: 04/18/2021. Gestational age: 21wk. Trimester: 2nd trimester. FINDINGS: DESCRIPTION Normal three vessel view. Main pulmonary artery 4.2 mm, aorta 3.5 mm and superior vena cava 2.4 mm. The rhythm is sinus rhythm, with a heart rate of 157bpm. The position is vertex. Normal Doppler pattern of the ductus venosus, umbilical artery, and vein. Three vessel cord. ANATOMIC RELATIONSHIPS - Normal visceral situs, with left sided stomach. Left sided cardiac apex (levocardia).Normally related great vessels. VEINS AND ATRIA Atrial septum - There is a patent foramen ovale. There is a [id number] shunt. Left atrium - The atrium is normal in size. Right atrium - The atrium is normal in size. Systemic veins - Inferior vena cava and superior vena cava seen entering normally into the right atrium. Pulmonary veins: There are at least 2 out of 4 pulmonary veins seen entering normally into the left atrium, with normal Doppler pattern. A-V CANAL Tricuspid valve - The valve is structurally normal. - There is normal biphasic inflow spectral Doppler. There is no regurgitation. Mitral valve - The valve is structurally normal. - There is normal biphasic inflow spectral Doppler. There is no regurgitation. VENTRICLES Right ventricle - The cavity size is normal. Wall thickness is normal. Systolic function is qualitatively normal. Left ventricle - The cavity size is normal. Wall thickness is normal. Systolic function is quantitatively normal. The endocardial fractional shortening (MM) is 41%. The ejection fraction (MM, Teichholz) is 78%. CONOTRUNCUS Aortic valve - The valve is structurally normal. - There is no stenosis. There is no regurgitation. Pulmonic valve - The valve is structurally normal. - There is no stenosis. There is no (more content not included)... Normal [facility] GLUCOSE ELAINE,3HR PREGNANCYon 10-13-2020 Glucose [Mass/Vol] 75 mg/dL Normal <95 [facility] Comment on above: Performed By: #### G TTP3 #### [facility] [address] [place] [address] Glucose [Mass/Vol] 162 mg/dL Normal <180 [facility] Comment on above: Performed By: #### G TTP3 #### [facility] [address] [place] [address] Glucose [Mass/Vol] 122 mg/dL Normal <155 [facility] Comment on above: Performed By: #### G TTP3 #### [facility] [address] [place] [address] Glucose [Mass/Vol] 73 mg/dL Normal <140 [facility] Comment on above: Performed By: #### G TTP3 #### [facility] [address] [place] [address] INTERPRETATION SEE BELOW Normal [facility] Comment on above: Result Comment: Diag nostics with glucose loading dose of 100 g. Reference values from [place] [employer]. Diabetes Care 2015;38(Suppl.1):S8-S16. Performed By: #### G TTP3 #### [facility] [address] [place] [address] Basic metabolic 2000 panelon 07-03-2020 Anion gap [Moles/Vol] 10 mmol/L Normal 9-18 [facility] Comment on above: Order Comment: Speci men Type: BLOOD SPECIMEN Performed By: #### 2 4321-2 #### [facility] CLIA [id number] [address] [facility] [place] [address] [place] Calcium [Mass/Vol] 9.0 mg/dL Normal 8.5-10.2 [facility] Comment on above: Order Comment: Speci men Type: BLOOD SPECIMEN Performed By: #### 2 4321-2 #### [facility] CLIA [id number] [address] [facility] [address] [place] Chloride [Moles/Vol] 105 mmol/L Normal 97-105 [facility] Comment on above: Order Comment: Speci men Type: BLOOD SPECIMEN Performed By: #### 2 4321-2 #### [facility] CLIA [id number] [address] [facility] [address] [place] CO2 [Moles/Vol] 26 mmol/L Normal 22-30 [facility] Comment on above: Order Comment: Speci men Type: BLOOD SPECIMEN Performed By: #### 2 4321-2 #### [facility] CLIA [id number] [address] [facility] [address] [place] Creatinine [Mass/Vol] 0.71 mg/dL Normal 0.58-0.96 [facility] Comment on above: Order Comment: Speci men Type: BLOOD SPECIMEN Performed By: #### 2 4321-2 #### [facility] CLIA [id number] [address] [facility] [place] [address] [place] GFR/1.73 sq M.predicted among blacks MDRD (S/P/Bld) [Vol rate/Area] mL/min/{1.73_m2} Normal [facility] Comment on above: Order Comment: Speci men Type: BLOOD SPECIMEN Performed By: #### 2 4321-2 #### [facility] CLIA [id number] [address] [place] [address] [place] GFR/1.73 sq M.predicted among non-blacks MDRD (S/P/Bld) [Vol rate/Area] mL/min/{1.73_m2} Normal [facility] Comment on above: Order Comment: Speci men Type: BLOOD SPECIMEN Result Comment: eGFR (Estimated GFR) Units of measure: mL/min/1.73 meters squared eGFR is derived from the reexpressed MDRD Study equation using the following parameters: serum creatinine, age, gender and race. The creatinine assay has been calibrated to be traceable to IDMS. An eGFR <60 mL/min/1.73m2 for >3 months is consistent with chronic kidney disease. Refer to KDOQI guidelines for clinical interpretation. In patients with unstable renal function, e.g. those with acute kidney injury, the eGFR may not accurately reflect actual GFR. Performed By: #### 2 4321-2 #### [facility] CLIA [id number] [address] [place] [address] [place] Glucose [Mass/Vol] 103 mg/dL High 74-99 [facility] Comment on above: Order Comment: Speci men Type: BLOOD SPECIMEN Result Comment: The [place] Diabetes Association (ADA) provides guidance for cutoff values for fasting glucose and random glucose. The ADA defines fasting as no caloric intake for at least 8 hours. Fasting plasma glucose results between 100 to 125 mg/dL indicate increased risk for diabetes (prediabetes). Fasting plasma glucose results greater than or equal to 126 mg/dL meet the criteria for diagnosis of diabetes. In the absence of unequivocal hyperglycemia, results should be confirmed by repeat testing. In a patient with classic symptoms of hyperglycemia or hyperglycemic crisis, random plasma glucose results greater than or equal to 200 mg/dL meet the criteria for diagnosis of diabetes. Reference: Standards of Medical Care in Diabetes 2016, [place] Diabetes Association. Diabetes Care. 2016.39(Suppl 1). Performed By: #### 2 4321-2 #### [facility] CLIA [id number] [address] [place] [address] [place] Potassium [Moles/Vol] 4.0 mmol/L Normal 3.7-5.1 [facility] Comment on above: Order Comment: Speci men Type: BLOOD SPECIMEN Performed By: #### 2 4321-2 #### [facility] CLIA [id number] [address] [place] [place] [address] [place] [facility] Sodium [Moles/Vol] 141 mmol/L Normal 136-144 [facility] Comment on above: Order Comment: Speci men Type: BLOOD SPECIMEN Performed By: #### 2 4321-2 #### [facility] CLIA [id number] [address] [facility] [place] [address] [place] Urea nitrogen [Mass/Vol] 8 mg/dL Normal 7- [facility] Comment on above: Order Comment: Speci men Type: BLOOD SPECIMEN Performed By: #### 2 4321-2 #### [facility] CLIA [id number] [address] [facility] [place] [address] [place] CBC W Auto Differential pane l (Bld)on 07-03-2020 Basophils (Bld) [#/Vol] 10*3/uL Normal <0.11 [facility] Comment on above: Order Comment: Speci men Type: BLOOD SPECIMEN Performed By: #### 5 7021-8 #### [facility] CLIA [id number] [address] [place] [place] [address] [place] Basophils/100 WBC (Bld) 0.2 % Normal [facility] Comment on above: Order Comment: Speci men Type: BLOOD SPECIMEN Performed By: #### 5 7021-8 #### [facility] CLIA [id number] [address] [place] [place] [address] [place] Differential cell count method Nom (Bld) Auto Normal [facility] Comment on above: Order Comment: Speci men Type: BLOOD SPECIMEN Performed By: #### 5 7021-8 #### [facility] CLIA [id number] [address] [place] [place] [address] [place] Eosinophils (Bld) [#/Vol] 0.30 10*3/uL Normal <0.46 [facility] Comment on above: Order Comment: Speci men Type: BLOOD SPECIMEN Performed By: #### 5 7021-8 #### [facility] CLIA [id number] [address] [place] [address] [facility] [place] Eosinophils/100 WBC (Bld) 3.5 % Normal [facility] Comment on above: Order Comment: Speci men Type: BLOOD SPECIMEN Performed By: #### 5 7021-8 #### [facility] CLIA [id number] [address] [place] [address] [place] Erythrocyte distribution width (RBC) [Ratio] 15.7 % High 11.5-15.0 [facility] Comment on above: Order Comment: Speci men Type: BLOOD SPECIMEN Performed By: #### 5 7021-8 #### [facility] CLIA [id number] [address] [place] [address] [facility] [place] Hematocrit (Bld) [Volume fraction] 39.1 % Normal 36.0-46.0 [facility] Comment on above: Order Comment: Speci men Type: BLOOD SPECIMEN Performed By: #### 5 7021-8 #### [facility] CLIA [id number] [address] [place] [address] [facility] [place] Hemoglobin (Bld) [Mass/Vol] 12.7 g/dL Normal 11.5-15.5 [facility] Comment on above: Order Comment: Speci men Type: BLOOD SPECIMEN Performed By: #### 5 7021-8 #### [facility] CLIA [id number] [address] [place] [place] [address] [place] Lymphocytes (Bld) [#/Vol] 3.17 10*3/uL Normal 1.00-4.00 [facility] Comment on above: Order Comment: Speci men Type: BLOOD SPECIMEN Performed By: #### 5 7021-8 #### [facility] CLIA [id number] [address] [facility] [place] [address] [facility] [place] Lymphocytes/100 WBC (Bld) 36.7 % Normal [facility] Comment on above: Order Comment: Speci men Type: BLOOD SPECIMEN Performed By: #### 5 7021-8 #### [facility] CLIA [id number] [address] [place] [place] [address] [facility] MCH (RBC) [Entitic mass] 21.7 pg Low 26.0-34.0 [facility] Comment on above: Order Comment: Speci men Type: BLOOD SPECIMEN Performed By: #### 5 7021-8 #### [facility] CLIA [id number] [address] [place] [place] [address] [place] MCHC (RBC) [Mass/Vol] 32.5 g/dL Normal 30.5-36.0 [facility] Comment on above: Order Comment: Speci men Type: BLOOD SPECIMEN Performed By: #### 5 7021-8 #### [facility] CLIA [id number] [address] [place] [place] [address] [place] MCV (RBC) [Entitic vol] 66.7 fL Low 80.0-100.0 [facility] Comment on above: Order Comment: Speci men Type: BLOOD SPECIMEN Performed By: #### 5 7021-8 #### [facility] CLIA [id number] [address] [place] [address] [facility] [place] Monocytes (Bld) [#/Vol] 0.67 10*3/uL Normal <0.87 [facility] Comment on above: Order Comment: Speci men Type: BLOOD SPECIMEN Performed By: #### 5 7021-8 #### [facility] CLIA [id number] [address] [place] [place] [address] [place] Monocytes/100 WBC (Bld) 7.8 % Normal [facility] Comment on above: Order Comment: Speci men Type: BLOOD SPECIMEN Performed By: #### 5 7021-8 #### [facility] CLIA [id number] [address] [place] [place] [address] [facility] [place] Neutrophils (Bld) [#/Vol] 4.48 10*3/uL Normal 1.45-7.50 [facility] Comment on above: Order Comment: Speci men Type: BLOOD SPECIMEN Performed By: #### 5 7021-8 #### [facility] CLIA [id number] [address] [place] [place] [address] [place] Neutrophils/100 WBC (Bld) 51.8 % Normal [facility] Comment on above: Order Comment: Speci men Type: BLOOD SPECIMEN Performed By: #### 5 7021-8 #### [facility] CLIA [id number] [address] [place] [address] [place] Platelet mean volume (Bld) [Entitic vol] 9.7 fL Normal 9.0-12.7 [facility] Comment on above: Order Comment: Speci men Type: BLOOD SPECIMEN Performed By: #### 5 7021-8 #### [facility] CLIA [id number] [address] [place] [address] [place] Platelets (Bld) [#/Vol] 267 10*3/uL Normal 150-400 [facility] Comment on above: Order Comment: Speci men Type: BLOOD SPECIMEN Performed By: #### 5 7021-8 #### [facility] CLIA [id number] [address] [place] [place] [address] [place] RBC (Bld) [#/Vol] 5.86 10*6/uL High 3.90-5.20 [facility] Comment on above: Order Comment: Speci men Type: BLOOD SPECIMEN Performed By: #### 5 7021-8 #### [facility] CLIA [id number] [address] [place] [address] [place] WBC (Bld) [#/Vol] 8.64 10*3/uL Normal 3.70-11.00 [facility] Comment on above: Order Comment: Speci men Type: BLOOD SPECIMEN Performed By: #### 5 7021-8 #### [facility] CLIA [id number] [address] [place] [address] [place] [address] BRAIN WO IVCONon 07-04-19 CT BRAIN WO IVCON * * *Final Report* * * DATE OF EXAM: Jul 03 2020 11:11AM [facility] 0504 - CT BRAIN WO IVCON / PROCEDURE REASON: TIA, initial exam * * * * Physician Interpretation * * * * EXAMINATION: CT BRAIN WO IVCON CLINICAL HISTORY: Altered mental status TECHNIQUE: Serial axial images without IV contrast were obtained from the vertex to the foramen magnum. MQ: [id number] CT Radiation dose: Integrated Dose-Length Product (DLP) for this visit = 772.45 mGy*cm CT Dose Reduction Employed: No dose reduction techniques were required COMPARISON: None. 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 Post-operative change: None. Acute change: No evidence of an acute infarct or other acute parenchymal process. Hemorrhage: No evidence of acute intracranial hemorrhage. ECASS hemorrhagic transformation score: Not Applicable Mass Lesion / Mass Effect: There is no evidence of an intracranial mass or extraaxial fluid collection. No significant mass effect. Chronic change: None apparent. Parenchyma: There is no significant volume loss. The brain parenchyma is otherwise within normal limits for age. Ventricles: The ventricles are within normal limits of size and configuration for age. Paranasal sinuses and skull base: The visualized paranasal sinuses are grossly clear. The skull base and imaged soft tissues are unremarkable. IMPRESSION: Negative nonenhanced head CT. No acute or subacute intracranial abnormalities Bar Machine Operator Production: NADIRA Transcribe Date/Time: Jul 03 2020 11:16A Dictated by : MIRA ORELLANA MD This examination was interpreted and the report reviewed and electronically signed by: MIRA ORELLANA MD on Jul 03 2020 11:20AM EST [id number] Normal [facility] ED NOTEon 07-03-2020 ED NOTE HNO ID: [id number] Author: Margaret Mcmahon RN Service: Emergency Medicine Author Type: Registered Nurse Type: ED Notes Filed: 07/03/2020 10:38 AM Note Text: Pt reports waking this morning feeling "normal" - went to work and reported right hand / finger / toe numbness and tingling. 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 Pt then reported inability to complete thoughts. Client brought patient to the ED. Pt tearful when talking; reports resolution of all symptoms at this time. Pt reports history of anxiety-related health issues. Has had "full work up" and doctors unable to determine medical condition and have ruled out TIA / Stroke. This patient reports a history of taking antianxiety medications; however, states "I stopped taking them because I don't like how they make me feel". Pt advised that there are many different medications on market that may help her in different ways as a potential for helping. Normal [facility] ED NOTE HNO ID: [id number] Author: Laurie Philippe RN Service: ? Author Type: Registered Nurse Type: ED Notes Filed: 07/03/2020 9:37 AM Note Text: Pt arrives crying, c/o numbness of right lower leg and right arm Difficulty finding words since 729 Normal [facility] ED PROV NOTEon 07-03-2020 ED PROV NOTE HNO ID: [id number] Author: Irene Shirley MD Service: Emergency Medicine Author Type: Physician Type: ED Provider Notes Filed: 07/03/2020 12:48 PM Note Text: ED Provider Note Patient Name: Susy Roach SERVICE DATE: 07/03/20 History Patient presents with: Numbness Expressive Language Problem This is a 21-year-old female without significant past medical history coming in for evaluation of numbness and tingling. 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 She states that this morning she woke up and had some tingling sensation to the third fourth and fifth digit on the right hand. She states that symptoms wax and wane in severity. Patient states when she got to work the symptoms were exacerbated and she was having difficulty holding the scissors and cutting hair. She states this did cause her some anxiety and then she started to have some circumoral tingling, paresthesias and then sensation of tingling in her toes, hands. He also complains of a mild headache. Denies blurred vision, double vision or loss of vision. No fall, trauma or injury. States that she is having trouble getting out of words and speaking which caused her significant stress. Patient was actually brought into the emergency department by her client. Denies recent fevers or chills. PAST MEDICAL HISTORY Diagnosis Date - Patient denies medical problems PAST SURGICAL HISTORY Procedure Laterality Date - SECTION HX No family history on file. Social History Tobacco Use - Smoking status: Current Every Day Smoker - Smokeless tobacco: Never Used Substance and Sexual Activity - Alcohol use: Not on file - Drug use: Not on file - Sexual activity: Not on file ALLERGIES No Known Allergies Review of Systems Constitutional: Negative for chills and fever. HENT: Negative for congestion, sinus pressure and sore throat. Eyes: Negative for photophobia and visual disturbance. Respiratory: Negative for cough and shortness of breath. Cardiovascular: Negative for chest pain and palpitations. Gastrointestinal: Negative for abdominal pain, nausea and vomiting. Genitourinary: Negative for dysuria, frequency and hematuria. Musculoskeletal: Negative for back pain and neck pain. Skin: Negative for rash and wound. Neurological: Positive for weakness and numbness. Negative for dizziness and headaches. Psychiatric/Behavioral: Positive for decreased concentration. The patient is nervous/anxious. Physical Exam BP 120/83 Pulse 78 Temp 99.3 Resp 16 Wt 190 lb (86.2kg) SpO2 100% LMP 06/09/2020 O2 Therapy: Room Air Physical Exam Vitals and nursing note reviewed. Constitutional: General: She is in acute distress. Appearance: She is well-developed. Comments: Patient is quite tearful and anxious on questioning. HENT: Head: Normocephalic and atraumatic. Eyes: Conjunctiva/sclera: Conjunctivae normal. Neck: Trachea: No tracheal deviation. Comments: No midline cervical tenderness palpation, no step-off deformity. She does have mild tenderness palpation of the right paraspinal muscles. Cardiovascular: Rate and Rhythm: Normal rate and regular rhythm. Heart sounds: Normal heart sounds. Pulmonary: Effort: Pulmonary effort is normal. No respiratory distress. Breath sounds: Normal breath sounds. Abdominal: General: Bowel sounds are normal. Palpations: Abdomen is soft. Musculoskeletal: General: Normal range of motion. Cervical back: Normal range of motion. Skin: General: Skin is warm and dry. Neurological: Mental Status: She is alert and oriented to person, place, and time. Comments: Cranial nerves II through XII grossly intact without deficit: Pupils are equal round reactive to light extraocular movements are intact. Face is bilaterally symmetrical motor and sensory. No facial droop appreciated. Tongue is midline on protrusion. Speech is clear and crisp, patient alert and oriented ?3. 5 out of 5 strength, motor and sensory to extremities ?4. No findings on cerebellar testing with finger to nose or [id number] exam. Patient with even steady gait in the emergency room. Psychiatric: Mood and Affect: Mood is anxious. Affect is tearful. Behavior: Behavior is hyperactive. Diagnostic Testing ED Labs Ordered and Reviewed BASIC METABOLIC PNL - Abnormal; Notable for the following components: Result Value Ref Range Glucose 103 (*) 74 - 99 mg/dL All other components within normal limits CBC + DIFF - Abnormal; Notable for the following components: RBC 5.86 (*) 3.90 - 5.20 m/uL MCV 66.7 (*) 80.0 - 100.0 fL MCH 21.7 (*) 26.0 - 34.0 pg RDW-CV 15.7 (*) 11.5 - 15.0 % All other components within normal limits HCG QUAL UR - Normal URINALYSIS, WITH MICROSCOPIC - Normal Procedures ED Course / Clinical Impression Clinical Impressions as of Jul 03 1240 Cervical radiculopathy Stress reaction MDM / Disposition / Plan Patient is a 29-year-old female (more content not included)... Normal [facility] HCG Preg Ur Qlon 07-03-2020 HCG ( test) Ql (U) Negative Normal Negative [facility] Comment on above: Order Comment: Speci men Type: URINE SPECIMEN Result Comment: This test is intended to aid in the early detection of . Very dilute urine samples, as indicated by a low specific gravity, may not contain agency sales representative levels of hCG. This test detects intact hCG only. This test does not reliably detect hCG degradation products, including free-beta subunit and beta-core fragment. Therefore, this test may show reduced reactivity in urine after 8 weeks gestation. A number of conditions other than , including trophoblastic disease and certain non-trophoblastic neoplasms cause elevated levels of hCG. As with any assay employing mouse antibodies, the possibility exists for interference by human anti-mouse antibodies (HAMA) in the specimen. The test provides a presumptive diagnosis for . Performed By: #### 2 106-3 #### [facility] CLIA [id number] [address] [place] [address] [place] Urinalysis complete panel (U )on 07-03-2020 Bilirubin Ql (U) Negative Normal Negative [facility] Comment on above: Order Comment: Speci men Type: URINE SPECIMEN Performed By: #### 2 4356-8 #### [facility] CLIA [id number] [address] [place] [address] [place] Clarity (Unsp spec) Clear Normal Clear [facility] Comment on above: Order Comment: Speci men Type: URINE SPECIMEN Performed By: #### 2 4356-8 #### [facility] CLIA [id number] [address] [facility] [place] [address] [facility] Color (U) Yellow Normal Yellow [facility] Comment on above: Order Comment: Speci men Type: URINE SPECIMEN Performed By: #### 2 4356-8 #### [facility] CLIA [id number] [address] [facility] [place] [address] [facility] Glucose Test strip (U) [Mass/Vol] Negative Normal Negative [facility] Comment on above: Order Comment: Speci men Type: URINE SPECIMEN Performed By: #### 2 4356-8 #### [facility] CLIA [id number] [address] [facility] [place] [address] [place] Hemoglobin Ql (U) Negative Normal Negative [facility] Comment on above: Order Comment: Speci men Type: URINE SPECIMEN Performed By: #### 2 4356-8 #### [facility] CLIA [id number] [address] [facility] [place] [address] [place] Ketones Ql (U) Negative Normal Negative [facility] Comment on above: Order Comment: Speci men Type: URINE SPECIMEN Performed By: #### 2 4356-8 #### [facility] CLIA [id number] [address] [place] [address] [facility] Leukocyte esterase Test strip Ql (U) Negative Normal Negative [facility] Comment on above: Order Comment: Speci men Type: URINE SPECIMEN Performed By: #### 2 4356-8 #### [facility] CLIA [id number] [address] [facility] [address] [place] Nitrite Ql (U) Negative Normal Negative [facility] Comment on above: Order Comment: Speci men Type: URINE SPECIMEN Performed By: #### 2 4356-8 #### [facility] CLIA [id number] [address] [facility] [place] [address] [facility] [place] pH (U) 7.0 [pH] Normal 5.0-8.0 [facility] Comment on above: Order Comment: Speci men Type: URINE SPECIMEN Performed By: #### 2 4356-8 #### [facility] CLIA [id number] [address] [facility] [place] [address] [place] Protein (U) [Mass/Vol] Negative Normal Negative [facility] Comment on above: Order Comment: Speci men Type: URINE SPECIMEN Performed By: #### 2 4356-8 #### [facility] CLIA [id number] [address] [facility] [place] [address] [place] RBC LM.HPF (Urine sed) [#/Area] 0-3 /HPF Normal 0-3 /HPF [facility] Comment on above: Order Comment: Speci men Type: URINE SPECIMEN Performed By: #### 2 4356-8 #### [facility] CLIA [id number] [address] [place] [place] [address] [facility] [place] Specific gravity (U) [Rel density] 1.020 Normal 1.005-1.030 [facility] Comment on above: Order Comment: Speci men Type: URINE SPECIMEN Performed By: #### 2 4356-8 #### [facility] CLIA [id number] [address] [facility] [place] [address] [facility] [place] Urobilinogen Ql (U) 0.2 EU/dL Normal 0.2-1.0 EU/dL [facility] Comment on above: Order Comment: Speci men Type: URINE SPECIMEN Performed By: #### 2 4356-8 #### [facility] CLIA [id number] [address] [place] [address] [facility] [place] WBC LM.HPF (Urine sed) [#/Area] 0-5 /HPF Normal 0-5 /HPF [facility] Comment on above: Order Comment: Speci men Type: URINE SPECIMEN Performed By: #### 2 4356-8 #### [facility] CLIA [id number] [address] [place] [address] [facility] [place] Glucose Meteron 07-11-2018 Glucose mass conc 137 mg/dL High 70-99 [facility] Comment on above: Result Comment: MARYCARMEN DAVALOS Performed By: #### G LMET #### [place] [address] Hemogramon 07-11-2018 Erythrocyte distribution width Ratio (RBC) 15.2 % High 11.7-14.4 [facility] Comment on above: Performed By: #### C BC1 #### [place] [address] Hematocrit Volume Fraction (Bld) 36.0 % Normal 34.1-44.9 [facility] Comment on above: Performed By: #### C BC1 #### [place] [address] Hemoglobin mass conc (Bld) 11.3 g/dL Normal 11.2-15.7 [facility] Comment on above: Performed By: #### C BC1 #### [place] [address] MCH Entitic mass (RBC) 22.4 pg Low 25.6-32.2 [facility] Comment on above: Performed By: #### C BC1 #### [facility] [address] [place] [address] MCHC mass conc (RBC) 31.4 % Low 31.6-34.8 [facility] Comment on above: Performed By: #### C BC1 #### [facility] [address] [place] [address] MCV Entitic volume (RBC) 71.4 fL Low 79.4-94.8 [facility] Comment on above: Performed By: #### C BC1 #### [facility] [address] [place] [address] Platelet mean volume Entitic volume (Bld) 11.9 fL Normal 9.4-12.3 [facility] Comment on above: Performed By: #### C BC1 #### [facility] [address] [place] [address] Platelets #/vol (Bld) 198 thou/cmm Normal 182-369 [facility] Comment on above: Performed By: #### C BC1 #### [facility] [address] [place] [address] RBC #/vol (Bld) 5.04 mil/cmm Normal 3.93-5.22 [facility] Comment on above: Performed By: #### C BC1 #### [facility] [address] [place] [address] RDW SD 38.5 fl Normal 36.4-46.3 [facility] Comment on above: Performed By: #### C BC1 #### [facility] [address] [place] [address] WBC #/vol (Bld) 12.40 thou/cmm High 3.98-10.04 [facility] Comment on above: Performed By: #### C BC1 #### [facility] [address] [place] [address] Hemogramon 07-10-2018 Erythrocyte distribution width Ratio (RBC) 15.2 % High 11.7-14.4 [facility] Comment on above: Performed By: #### C BC1 #### [facility] [address] [place] [address] Hematocrit Volume Fraction (Bld) 40.0 % Normal 34.1-44.9 [facility] Comment on above: Performed By: #### C BC1 #### [facility] [address] [place] [address] Hemoglobin mass conc (Bld) 12.8 g/dL Normal 11.2-15.7 [facility] Comment on above: Performed By: #### C BC1 #### [facility] [address] [place] [address] MCH Entitic mass (RBC) 22.6 pg Low 25.6-32.2 [facility] Comment on above: Performed By: #### C BC1 #### [facility] [address] [place] [address] MCHC mass conc (RBC) 32.0 % Normal 31.6-34.8 [facility] Comment on above: Performed By: #### C BC1 #### [facility] [address] [place] [address] MCV Entitic volume (RBC) 70.5 fL Low 79.4-94.8 [facility] Comment on above: Performed By: #### C BC1 #### [facility] [address] [place] [address] Platelet mean volume Entitic volume (Bld) 11.3 fL Normal 9.4-12.3 [facility] Comment on above: Performed By: #### C BC1 #### [facility] [address] [place] [address] Platelets #/vol (Bld) 246 thou/cmm Normal 182-369 [facility] Comment on above: Performed By: #### C BC1 #### [facility] [address] [place] [address] RBC #/vol (Bld) 5.67 mil/cmm High 3.93-5.22 [facility] Comment on above: Performed By: #### C BC1 #### [facility] [address] [place] [address] RDW SD 38.1 fl Normal 36.4-46.3 [facility] Comment on above: Performed By: #### C BC1 #### [facility] [address] [place] [address] WBC #/vol (Bld) 11.52 thou/cmm High 3.98-10.04 [facility] Comment on above: Performed By: #### C BC1 #### [facility] [address] [place] [address] Type and Screenon 05-28-2019 ABO group Nom (Bld) A Normal [facility] Comment on above: Performed By: #### T &S #### [facility] [address] [place] [address] Comment See Below Normal [facility] Comment on above: Result Comment: Scre en &/or Xmatch expires in 3 days at 12 midnight. Redraw patient at that time. Performed By: #### T &S #### [facility] [address] [place] [address] RH Type Positive Normal [facility] Comment on above: Performed By: #### T &S #### [facility] [address] [place] [address] Vital Signs Date Time Vital Sign Value Performing Clinician Roquei joaquín 11-07-2024 09:35-0400 Diastolic blood pressure 81 mm[Hg] Dr. Charanjit Cortes MD [facility] 11-07-2024 09:35-0400 Heart rate 104 /min Dr. Charanjit Cortes MD [facility] 11-07-2024 09:35-0400 Respiratory rate 18 /min Dr. Charanjit Cortes MD [facility] 11-07-2024 09:35-0400 SaO2% (BldA) [Mass fraction] 98 % Dr. Charanjit Cortes MD [facility] 11-07-2024 09:35-0400 Systolic blood pressure 116 mm[Hg] Dr. Charanjit Cortes MD [facility] 06-28-2024 10:08-0400 Body height 160.[address] Charanjit Cortes MD [facility] 06-28-2024 10:08-0400 Body mass index (BMI) [Ratio] 27.1 kg/m2 Dr. Charanjit Cortes MD [facility] 06-28-2024 10:08-0400 Body weight 69.[address] Charanjit Cortes MD [facility] 06-28-2024 10:08-0400 Diastolic blood pressure 80 mm[Hg] Dr. Charanjit Cortes MD [facility] 06-28-2024 10:08-0400 Heart rate 96 /min Dr. Charanjit Cortes MD [facility] 06-28-2024 10:08-0400 Respiratory rate 18 /min Dr. Charanjit Cortes MD [facility] 06-28-2024 10:08-0400 SaO2% (BldA) [Mass fraction] 99 % Dr. Charanjit Cortes MD [facility] 06-28-2024 10:08-0400 Systolic blood pressure 118 mm[Hg] Dr. Charanjit Cortes MD [facility] 01-01-2024 08:46-0500 Body height 160 cm Estefany Adair MATHEMATICS ACADEMIC CHAIR - BACTERIOLOGIST PHARMACEUTICAL Work Phone: [facility] 01-01-2024 08:46-0500 Body mass index (BMI) [Ratio] 26.22 kg/m2 Estefany Adair MATHEMATICS ACADEMIC CHAIR - BACTERIOLOGIST PHARMACEUTICAL Work Phone: [facility] 01-01-2024 08:46-0500 Body weight 67.13 kg Estefany Adair MATHEMATICS ACADEMIC CHAIR - BACTERIOLOGIST PHARMACEUTICAL Work Phone: [facility] Encounters Encounter Date Encounter Type Care Provider Facility Start: 11-13-2024 ambulatory MELISSA GIGLIOTTI Facili ty:[facility] Start: 11-13-2024 End: 11-13-2024 ambulatory MELISSA GIGLIOTTI Facility:[facility] Start: 11-07-2024 End: 11-07-[address] Rohith Roche MD -[facility] Work Phone: Start: 11-07-2024 End: 11-07-[address] Charanjit Cortes MD -[facility] Start: 06-28-2024 End: 06-28-[address] Rohith Roche MD -[facility] Work Phone: Start: 06-28-2024 End: 06-28-[address] Charanjit Cortes MD [facility] Work Phone: Start: 04-29-2024 End: 04-29-2024 ambulatory ANDREW MEYER MD Facility:[facility] Start: 03-07-2024 End: 03-07-2024 Subsequent hospital visit by physician Estefany Adair APRN - BACTERIOLOGIST PHARMACEUTICAL Work Phone: [facility] Comment on above: Other abnormal and i nconclusive findings on diagnostic imaging of breast Start: 03-07-2024 End: 03-07-2024 ambulatory MELISSA MADSEN [facility] Start: 03-07-2024 End: 03-07-2024 ambulatory ESTEFANY ADAIR [facility] Start: 01-01-2024 End: 01-01-2024 [facility] Start: 01-01-2024 End: 01-01-2024 Subsequent hospital visit by physician Estefany Busby CNP Work Phone: [facility] Comment on above: Encounter for screen ing mammogram for malignant neoplasm of breast; Other specified personal risk factors, not elsewhere classified Start: 11-20-2023 End: 02-19-2024 Transcribe Orders Estefany Busby CNP Work Phone: [facility] Comment on above: Encounter for screen ing mammogram for malignant neoplasm of breast (Primary Dx); Other specified personal risk factors, not elsewhere classified Start: 07-05-2023 End: 07-08-2023 ambulatory MARY [facility] Procedures Date Procedure Procedure Detail Performing Clinician Start: 03-07-2024 Diagnostic mammograp hy computer-aided detcj uni Estefany Busby CNP Work Phone: Start: 01-01-2024 Screening digital br east tomosynthesis bi Estefany Busby CNP Work Phone: Start: 07-10-2018 Antibody screen Comment on above: Performed By: #### T &S #### [place] [address] Plan of Treatment Date Care Activity Detail Author Start: 09-30-2066 RSV Immunization for Adults (1 - 1-dose 75+ series) RSV Immunization for Adults (1 - 1-dose 75+ series) [facility] Start: 09-30-2041 Zoster Vaccines (1 of 2) Zoster Vaccines (1 of 2) [facility] Start: 01-27-2031 DTaP/Tdap/Td Vaccines (10 - Td or Tdap) DTaP/Tdap/Td Vaccines (10 - Td or Tdap) [facility] Start: 12-04-2024 ambulatory Ambulatory Facility:[facility] Start: 03-07-2024 End: 03-07-2024 Patient encounter procedure [facility] Start: 10-15-2023 COVID-19 Vaccine ( season) COVID-19 Vaccine ( season) [facility] Start: 10-15-2023 Influenza vaccination Influenza Vaccine (#1) [facility] Start: 09-30-2021 Screening for malignant neoplasm of cervix [facility] Start: 09-30-2012 Screening for malignant neoplasm of cervix Pap Smear [facility] Start: 09-30-2010 Pneumococcal Vaccine: Pediatrics (0 to 5 Years) and At-Risk Patients (6 to 49 Years) (1 of 2 - PCV) Pneumococcal Vaccine: Pediatrics (0 to 5 Years) and At-Risk Patients (6 to 49 Years) (1 of 2 - PCV) [facility] Start: 09-30-2009 Hepatitis C screening Hepatitis C Screening [facility] Start: 09-30-2004 Varicella vaccination Varicella Vaccines (1 of 2 - 13+ 2-dose series) [facility] Start: 2003 Depression Screening Depression Screening [facility] Start: 09-30-1997 Pneumococcal Vaccine: Pediatrics (0 to 5 Years) and At-Risk Patients (6 to 64 Years) (1 of 2 - PCV) Pneumococcal Vaccine: Pediatrics (0 to 5 Years) and At-Risk Patients (6 to 64 Years) (1 of 2 - PCV) [facility] Start: 1991 HIV screening HIV Screening [facility] Start: 1991 Lipid panel Lipid Panel [facility] Payers Date Payer Category Payer Self-pay 2019 [facility] - O [id number] 2019 Unknown [id number] 1991 Unknown [id number] 1991 Unknown [id number] 1991 Unknown [id number] 1991 Unknown [id number] Unknown [id number] Unknown [id number] Unknown [id number] Unknown [id number] Unknown [id number] Social History Date Type Detail Facility Start: 01-01-2024 Tobacco smoking status INIS Occasional tobacco smoker [facility] History of tobacco use Cigarette Smoker [facility] Start: 01-01-2024 Tobacco use and exposure Smokeless tobacco non-user [facility] Start: 01-01-2024 End: 03-07-2024 History of Social function [facility] Start: 01-01-2024 End: 03-07-2024 Tobacco use panel [facility] Start: 1991 Sex assigned at Not on file [facility] Start: 03-30-2022 Sex Female (finding) [facility] Tobacco [place] [facility] Tobacco smoking consumption unknown [facility] Start: 06-28-2024 Tobacco smoking status [facility] Ex-smoker (finding) [facility] Start: 1990 Sex Assigned At Female [facility] Progress note 11-07-2024 Note Date & Type Note Facility 11-07-2024 Progress note [facility] Evaluation note Note Date & Type Note Facility Evaluation note Diagnosis Encounter for screening mammogram for malignant neoplasm of breast Other specified personal risk factors, not elsewhere classified documented in this encounter [facility] Evaluation note Note Date & Type Note Facility Evaluation note Diagnosis Encounter for screening mammogram for malignant neoplasm of breast- Primary Other specified personal risk factors, not elsewhere classified Encounter for screening mammogram for malignant neoplasm of breast Other specified personal risk factors, not elsewhere classified documented in this encounter [facility] Evaluation note Note Date & Type Note Facility Evaluation note Diagnosis Other abnormal and inconclusive findings on diagnostic imaging of breast documented in this encounter [facility] Evaluation note Note Date & Type Note Facility Evaluation note Diagnosis Onset Date Resolution Beta thalassemia trait acute Ma 2024 9:25am Macromastia acute June 28 9:25am [facility] Work Phone: Evaluation note Note Date & Type Note Facility Evaluation note Diagnosis Onset Date Resolution Macromastia acute October 9:22am [place] [facility] Work Phone: Progress note Note Date & Type Note Facility Progress note Note Date/Time November 07, 2024 10:19am [facility] [facility] [address] [place] [address] OFFICE VISIT Date of Service: 11/07/24 MR#: [id number] Acct: [id number] Name: SUSY ROACH Rep #: [id number] : 1990 Provider: Dr. Quan rt MD Kaley Age/Sex: 34/F Location: [facility] Status: Signed Intake Vital Signs 06/28/24 10:08 11/07/24 09:35 Height 5 ft 3 in Weight: 153 lb BMI 27.1 BP 118/80 116/81 H Blood Pressure Location Rt brachial Rt brachial Position Sitting Sitting Respiration 18 18 Pulse 96 104 H Pulse Source Monitor Monitor Pulse Oximetry (%) 99 98 Oxygen Delivery Method room air room air Intake Visit Reasons: f/u- pre op Chief Complaint: Breast reduction Is patient in pain?: No Allergies No Known Allergies Allergy (Unverified 11/07/24 09:35) Medications ?Medication ?Instructions ?Recorded ?Confirmed ?Type bupropion HCl 300 mg 24 hr tablet, 300 mg PO QAM 06/2811/07/24 History extended release norethindrone 1 mg-ethinyl 1 tab PO QDAY 06/28/2410/15 History estradiol 10 mcg (24)-iron 10 mcg(2) tablet (Lo Loestrin Fe) phentermine 37.5 mg tablet 37.5 mg PO QAM 06/28/24 History topiramate 25 mg tablet 25 mg PO QHS 06/28/24 History PFSH Medical History Beta thalassemia trait Surgical History History of Social History Smoking Status: Former smoker HPI f/u- pre op Details: Breast Reduction Pt c/o: [Macromastia] [Intertrigo] [Shoulder Pain] [Shoulder Grooves]? [Upper back pain] [Poor Posture] ? ? Physical therapy for back pain: [ N] ? Chiropractic treatment: [Y ] ? Home exercise: [ Y]?? ? NSAID use:[Y ]? ? Skin ulceration: [ Y] ? Topical or oral antifungal agents: [Y ] ? Participation in medically supervised weight loss program: [Y ] ? More info: Patient has seen a chiropractor for her back problems secondary to the macromastia and this has not helped much. Patient also has significant rashes in the summertime underneath the breasts that are refractory to powders and cause severe skin irritation and pain. ? Prior breast surgeries: [N ] PAIN: aching pain of upper back ? BRA SIZE: [DDD ] ? DESIRED? SIZE: [ C] ? OB HISTORY: PARA: [3 ] :? [Y ] PLAN FOR FUTURE PREGNANCIES: [N ] ? HISTORY OF BREAST DISEASE: [ N] PRIOR MAMMOGRAM: Patient has had a mammogram for cancer screening. FAMILY HISTORY OF BREAST CANCER: Grandmother and her aunt on her father's side had breast cancer. Patient is a former smoker has not smoked for several years She has beta thalassemia trait does not receive any treatment for this Patient is currently on weight loss medication phentermine and topiramate Patient has been stable and her weight however between 145 and 155 for the past year and is not interested in losing a significant amount of extra weight at this point. BMI is 27.1 CURRENT ENCOUNTER, 07 Nov 2024: Patient doing well overall. She has been approved for a breast reduction by [employer]. She is here to talk about preoperative labs and PCP clearance, as well as the risks benefits and alternatives to surgery. Exam Details EXAM: A&O x3, NAD Female charge 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 ? L: Grade [ 3] Medially displaced nipple: [No ] Note: measurements are in centimeters SN to NIPPLE:? L: [ 31]? ? ?R: [ 31] IMF to NIPPLE: ? ? ? L: [13 ] ? ? R: [ 14] WIDTH: ? L: [ 17] ? ? R: [18 ] I did not feel any new masses or lymphadenopathy on today's exam and the exam isstable since last visit Coding Level of Care Code No Charge Diagnoses Macromastia N62 Comment This was a visit for preoperative counseling, decision already made to have surgery Assessment and Plan (No Qualifiers) Assessment and Plan (1) Macromastia: Status: Acute Plan: I talked the patient extensively again today about breast reduction surgery. Based on the Schnur scale, I could remove 390 g of breast tissue from each side. Patient and I talked about the risk of wound healing complications as well as the risks of nipple ischemia/necrosis (with nipple wound healing problems), possibility of need for free nipple grafts, possibility of alteration in breast sensation and alteration in nipple sensation/loss of nipple sensation and permanent numbness, as well as fat necrosis, infection, bleeding, worsening of pain, failure to obtain the desired result of pain improvement and reduction in breast size, existing asymmetries and asymmetries postoperatively (expected), and the risks of anesthesia including hypotension/stroke and DVT and PE. Patient would benefit from Sandoval pattern skin resection with either superior medial or inferior pedicles. Patient would like to proceed with surgery. I reviewed with her her mammogram (diagnostic mammogram from February 2024 suggesting continuing yearly screening mammography, no masses). She is going to get PCP clearance Planning for labs (CBC with differential, CMP, and A1c) in the setting of history of beta thalassemia trait Plan for breast reduction surgery next month 11/07/24 1022 <Electronically signed by Rohith Roche MD> Date _ Rohith Roche MD Cosigner Signature: Date (if applicable) CC: ~ [facility] Work Phone: Reason for referral (narrative) Note Date & Type Note Facility Reason for referral (narrative) No reason for referral information available [facility] Work Phone: Summary Purpose Family History No Family History Records FoundNo Family History Records FoundNo Family History Records FoundNo Family History Records FoundNo Family History Records FoundNo Family History Records FoundNo Family History Records FoundNo Family History Records FoundNo Family History Records FoundNo Family History Records Found Advance Directives No Advanced Directives Records FoundNo Advanced Directives Records FoundNo Advanced Directives Records FoundNo Advanced Directives Records FoundNo Advanced Directives Records FoundNo Advanced Directives Records FoundNo Advanced Directives Records FoundNo Advanced Directives Records FoundNo Advanced Directives Records FoundNo Advanced Directives Records Found Chief Complaint and Reason for Visit Chief Complaint Admit Date BREAST REDUCTION June 28, 2024 9:25a m Reason for Visit Admit Date Beta thalassemia trait June 28, 2024 9: 25am Macromastia June 28, 2024 9:25a m Chief Complaint Admit Date f/u- pre op November 07, 2024 9:22am Reason for Visit Admit Date Macromastia November 07, 2024 9:22am Additional Source Comments INFORMATION SOURCE (unrecogn ized section and content) DATE CREATED AUTHOR 07/22/2018 [facility] DATE CREATED AUTHOR AUTHOR'S ORGANIZ ATION 07/09/2020 [facility] DATE CREATED AUTHOR AUTHOR'S ORGANIZ ATION 07/09/2020 [facility] DATE CREATED AUTHOR AUTHOR'S ORGANIZ ATION 10/13/2020 [facility] DATE CREATED AUTHOR AUTHOR'S ORGANIZ ATION 12/11/2020 [facility] DATE CREATED AUTHOR AUTHOR'S ORGANIZ ATION 06/27/2023 [facility] edical [place] DATE CREATED AUTHOR AUTHOR'S ORGANIZ ATION [facility]/2023 [facility] [place] DATE CREATED AUTHOR AUTHOR'S ORGANIZ ATION 03/09/2024 [facility] DATE CREATED AUTHOR AUTHOR'S ORGANIZ ATION 11/17/2024 [facility] DATE CREATED AUTHOR AUTHOR'S ORGANIZ ATION 12/01/2024 [place] Care Teams (unrecognized sec tion and content) Regional Environmental Manager Relationship Specialty Start Date End Date Melissa Madsen DO [address] [place] [address] PCP - General Internal Medicine 01/01/24 Regional Environmental Manager Relationship Specialty Start Date End Date Melissa Madsen DO [address] [place] [address] PCP - General Internal Medicine 01/01/24 Team Status: Active Member Role Status Dates Dr. Charanjit Cortes MD Family Provider Active Dr. Charanjit Cortes MD Primary Care Provider Active Team Status: Inactive Member Role Status Dates Dr. Charanjit Cortes MD Primary Care Provider Active Start: June 28, 2024 End: June 28, 2024 Dr. Charajnit Cortes MD Referring Provider Active Start: June 28, 2024 End: June 28, 2024 Dr. Rohith Roche MD Attending Provider Active Start: June 28, 2024 End: June 28, 2024 Team Status: Active Member Role/Relationship Status Dates THAI Verde Primary care physician Active Team Status: Inactive Member Role/Relationship Status Dates Dr. Charanjit Cortes MD Primary care physician Active Start: November 07, 2024 End: November 07, 2024 Dr. Charanjit Cortes MD Referring Provider Active Start: November 07, 2024 End: November 07, 2024 Dr. Rohith Roche MD Attending physician Active Start: November 07, 2024 End: November 07, 2024 Goals (unrecognized section and content) Goals may be documented in a n alternate sectionGoals may be documented in an alternate section FOR RECORDS PERTAINING TO PATIENTS WHO ARE OR HAVE BEEN ENROLLED IN A CHEMICAL DEPENDENCY/SUBSTANCEABUSE PROGRAM, SOME INFORMATION MAY BE OMITTED. This clinical summary was aggregated from multiple sources. Caution should be exercised in using it in the provision of clinical care. This summary normalizes information from multiple sources, and as a consequence, information in this document may materially change the coding, format and clinical context of patient data. In addition, data may be omitted in some cases. CLINICAL DECISIONS SHOULD BE BASED ON THE PRIMARY CLINICAL RECORDS. [facility]. provides no warranty or guarantee of the accuracy or completeness of information in this document.
[2024-12-04] MEDS: Lactated Ringers 1,000 ML 15 ML IV (06:34)
--- NOTE | 2024-12-04 06:49 | PCM.PRE.AN2 ---
ASA Classification* ASA Classification ASA Classification: 2 Assessment & Plan Anesthesia* Anesthesia Assessment Anesthesia Assessment: Discussed sedation and/or anesthesia options, risks, benefits, and alternatives with patient/parents/legal guardian/POA. Questions invited. The patient/parents/legal guardian/POA seems to understand and agrees to proceed with anesthesia plan. Reviewed the physical assessment, medical history, allergy history and patient home medications list prior to surgery/procedure/anesthetic and documented any changes. Performed airway and anesthesia risk assessments. Anesthesia Type Anesthesia Type: General Anesthesia Focused Assessment* Temperature: 99.6 F Pulse Rate: 78 Blood Pressure: 100/78 Respiratory Rate: 18 Pulse Ox: 100 Airway Assessment Mouth opens: >3 cm Mallampati Score: II Labs Anesthesia Preop lab: CBC WBC, (4.4-11.0) 7.0 K/mm3 11/07/24, 10:41 RBC, (4.2-5.4) 6.08 M/mm3 H 11/07/24, 10:41 Hgb, (12.0-15.0) 12.0 g/dL 11/07/24, 10:41 Hct, (37-47) 39.5 % 11/07/24, 10:41 Plt Count, (150-450) 416 K/mm3 11/07/24, 10:41 CHEMISTRY Potassium, (3.3-5.1) 4.5 mmol/L 11/07/24, 10:41 Sodium, (133-145) 140 mmol/L 11/07/24, 10:41 BUN, (4-19) 10 mg/dL 11/07/24, 10:41 Creatinine, (0.70-1.20) 0.67 mg/dL L 11/07/24, 10:41 Glucose, (70-99) 99 mg/dL 11/07/24, 10:41 COAG Pre-Assessment Diagnosis/Proposed Procedure Planned Operative Procedure(s): bilateral breast reduction Anesthesia History 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 When Was Last Pacemaker Check QUESTION #4 FULL TEXT: You/Your Family Experience fever (hyperthermia) with Anesthesia Last Oral Intake Last Oral intake: Last Oral Intake NPO since 23:30 12/04/24 06:26 Meds taken in AM with sips of No 12/04/24 06:26 water? Meds patient instructed to take am of surgery PONV PONV - sales program manager: PONV - sales program manager Female Yes 11/20/24 11:03 HX of Motion Sickness No 11/20/24 11:03 HX of N/V After Surgery No 11/20/24 11:03 Non-Smoker Yes 11/20/24 11:03 Duration of Surgery greater Yes 11/20/24 11:03 than 60 minutes Number of Risk Factors 3 11/20/24 11:03 PONV Score Moderate Risk 11/20/24 11:03 Height & Weight Height & Weight: Anesthesia: Height & Weight Height 5 ft 3 in 12/04/24 06:26 Weight: 80 kg 12/04/24 06:26 Body Mass Index (BMI) 31.2 12/04/24 06:26 Respiratory Assessment Respiratory Assessment - sales program manager: Respiratory Tract Infection Hx - sales program manager Hx Respiratory Tract Infection No 11/20/24 11:03 STOP Sleep Apnea STOP Sleep Apnea - sales program manager: STOP Sleep Apnea - sales program manager Hx Hypertension No 11/20/24 11:03 Hx Sleep Apnea No 11/20/24 11:03 CPAP BIPAP Do you snore loudly (louder No 11/20/24 11:03 than talking or can be heard Do you often feel tired/ No 11/20/24 11:03 fatigued/ sleepy during daytime? Has anyone observed you stop No 11/20/24 11:03 breathing during sleep? STOP Results Negative 11/20/24 11:03 QUESTION #5 FULL TEXT : Do you snore loudly (louder than talking or can be heard through closed doors)? Tobacco Use History Tobacco Use History - sales program manager: Tobacco Use History - sales program manager Tobacco Use Smoking Status Former smoker 11/20/24 11:03 Hx Tobacco Use Yes 11/20/24 11:03 Years Smoking Packs Smoked per Day Smoking Cessation Date was Yes - quit smoking within 15 11/20/24 11:03 within the last 15 years years Hx Smoking Cessation Date Hx Smoking Cessation Counseling Hematologic Medial History Hematologic Hx - sales program manager: Hematologic Medical Hx - documentation consultant Hx of Blood Transfusion No 11/20/24 11:03 Hx of Transfusion in last 3 No 11/20/24 11:03 Months Date of Last Transfusion (if within last 3 months) Ever experience any problems No 11/20/24 11:03 with transfusion(s)? Specify any problems Hx of Preganancy in last 3 No 11/20/24 11:03 Months Nurse Filling Out Transfusion [id number] 11/20/24 11:03 & Questions: Date: 11/20/24 11/20/24 11:03 Time: 11:10 11/20/24 11:03 Patient unable to answer at this time (ie. confused, unrespo /Reproduction History /Reproductive History - sales program manager: /Reproductive Hx- sales program manager Hx Now No 11/20/24 11:03 Gestational Age (in weeks): EDC: Hx Hx Para Hx Section SAB No 11/20/24 11:03 Active Medications Active Medications: Current Medications Generic Name Dose Route Start Last Admin Trade Name Serene PRN Reason Stop Dose Admin Lidocaine HCl 50 ml/ 0 ml 12/04/24 07:30 Epinephrine HCl 1 mg/ Lactated OPERA.SITE 12/04/24 07:31 Ringer's 949 ml X1 ONE Cefazolin Sodium 2 gm/ Sodium 110 mls @ 200 mls/hr 12/04/24 07:30 Chloride IV 12/04/24 08:02 INTRAOP ONE Lactated Ringer's 1,000 mls @ 15 mls/hr 12/04/24 06:00 12/04/24 06:34 IV 15 mls/hr .Q48H SHEFALI Administration PFSH Medical History PCOS (polycystic ovarian syndrome) Gestational diabetes Anxiety Former smoker Beta thalassemia trait Home Medications Medication Instructions Recorded Last Taken Type metformin 500 mg tablet 500 mg PO BID 11/20/24 Unknown History Allergy/AdvReac Type Severity Reaction Status Date / Time No Known Allergies Allergy Verified 12/04/24 06:25 Surgical History H/O bilateral salpingectomy History of Social History Smoking Status: Former smoker Review of Systems (Anesthesia) ROS Narrative System reviewed and no additional complaints, except as documented.
--- NOTE | 2024-12-04 07:28 | PCM.HP.STD ---
HPI - General HPI Narrative SUSY ROACH, is a 34 F who presents FOR BREAST REDUCTION. Current Encounter (DATE OF SURGERY H&P UPDATE): I saw and examined the patient this morning in pre-operative holding. We discussed risks and benefits of today's surgery and they would like to proceed. NO CHANGE in health history since last seen and evaluated. Ready to proceed with surgery. [facility] Medical History PCOS (polycystic ovarian syndrome) Gestational diabetes Anxiety Former smoker Beta thalassemia trait Home Medications Medication Instructions Recorded Last Taken Type metformin 500 mg tablet 500 mg PO BID 11/20/24 Unknown History Allergy/AdvReac Type Severity Reaction Status Date / Time No Known Allergies Allergy Verified 12/04/24 06:25 Surgical History H/O bilateral salpingectomy History of Social History Smoking Status: Former smoker Vital Signs Vital Signs Vital Signs: 12/04/24 06:26 12/04/24 06:26 12/04/24 06:50 Temperature 99.6 F H 99.6 F H Temperature Source Temporal Pulse Rate 78 78 Respiratory Rate 18 18 Respiratory Pattern Normal Blood Pressure 100/78 100/78 Blood Pressure Mean 85 Blood Pressure Source Monitor Blood Pressure Position Sitting Blood Pressure Location Right Arm Pulse Ox 100 100 Oxygen Delivery Method Room Air Weight Weight: 176 lb 5.917 oz Body Mass Index (BMI) 31.2 Physical Exam Narrative Large, ptotic breasts. Marked for reduction Discussed existing asymmetries Results Lab / Micro Data 11/07/24 10:41 11/07/24 10:41 Assessment & Plan Assessment/Plan (1) Macromastia: PLAN: I talked to the patient extensively about the risks of surgery, including bleeding, infection, damage to surrounding structures, poor scaring, surgical site dehiscence and wound formation, need for wound care, need for repeat operations, failure to obtain the desired result, DVT/PE, and the risks of anesthesia including , including stroke (from low blood pressure/ischemia or clot). The benefits and alternatives of this surgery were also discussed. All of their questions were answered, and they agreed to proceed with surgery. Discussed risks of ischemia/congestion on nipple and possible need for free nipple grafts Discussed existing and expected post-operative asymmetries.
--- NOTE | 2024-12-04 07:30 | BR_PTH ---
PATIENT: SUSY ROACH LOC: MS3 U#:[id number] AGE/SX: 34/F ROOM: MS311 RE12/04/[address]: Dr. Rohith Roche MD : 1990 BED: 1 DIS: 12/05/2024 SPEC #: [id number] RECD: 12/04/24 11:29 STATUS: MISHEL KARSTEN #: [id number] RONIT: 12/04/24 07:[address]: Rohith Roche DEPT: SURGICAL PATHOLOGY RECD BY: Oscar Chaudhry ENTERED: 12/04/24 13:26 SP TYPE: MAMOPLASTY OTHR DR: Maye Moore, THAI Tissues: A - Right breast, NOS B - Left breast, NOS Procedures: Surgery Specimen Level IV HEADER OPERATION: Breast reduction PRE-OP DIAGNOSIS: Macromastia TISSUE SUBMITTED: A- Right breast tissue *434 gm, B- Left breast tissue *406gm MICROSCOPIC DIAGNOSIS A. Right breast, bilateral reduction mammoplasties: * Benign breast tissue and skin B. Left breast: * Benign breast tissue and skin MICROSCOPIC DESCRIPTION Slides are reviewed. GROSS DESCRIPTION Received in 2 formalin containers labeled with the patient's name and date of . Designated as: A. "Right breast tissue" is a 434 g, 24 x 19.4 x 3.9 cm aggregate of linton-yellow lobulated fibroadipose and breast tissue and linton skin with blue surgical dye markings. Sections have fibroadipose and breast cut surfaces (80% adipose, 20% breast). Small Brake Form Operator sections are submitted in 3 cassettes. B. "Left breast tissue" is a 406 g, 19.2 x 15.1 x 4.7 cm aggregate of linton-yellow lobulated fibroadipose and breast tissue and linton skin with blue surgical dye. Sections have fibroadipose and breast cut surfaces (80% adipose, 20% breast) with focal hemorrhage. Small Brake Form Operator sections are submitted in 3 cassettes. MA [id number]
[2024-12-04] MEDS: Midazolam 2 MG/2 ML Syringe IV (07:36)
[2024-12-04] MEDS: Scopolamine 1mg/72hr Patch 1 PATCH TD (07:37)
[2024-12-04] MEDS: Lidocaine 1% (5 ml sdv) 5 ML Vial IV (07:43)
[2024-12-04] MEDS: Cefazolin 1 GM/5 ML Vial 2 GM IV (07:45)
[2024-12-04] MEDS: TAS 0.05% 1000 mls w/ LR OPERA.SITE (08:20)
[2024-12-04] MEDS: Bupiv/Epi 0.25% 30 ML Vial (10:07)
--- NOTE | 2024-12-04 10:54 | OP.PCM_ITS ---
Operative Report (Standard) Operative Information Date of Procedure: 12/04/24 Pre-Operative Diagnosis: Macromastia Post-Operative Diagnosis: Same Surgery/Procedure Performed: 1) Bilateral Sandoval pattern superior medial pedicle breast reduction simplex printer installer: Yes Optometry Doctor: Ezra Baeza Tasks completed by first sampler: Closing and Retracting Additional technical support assistant?: Yes Additional Gambreler Helper #2: Ping Estes Tasks completed by technical support assistant #2: Closing Type of Anesthesia: General/Supplemental (600 cc of tumescent solution (949 cc LR , 1 mg of epinephrine and 1 cc of saline, and 50 cc of 1% lidocaine), as well as 30 cc of quarter percent Marcaine with 1-200,000 epinephrine ) RN Documented Start/Stop Times: Operation Date: 12/04/24 07:30 Case Time Into Pre-Op 12/04/24 05:52 Out of Pre-Op 12/04/24 07:35 Anesthesia Start 12/04/24 07:36 Into Room 12/04/24 07:36 Procedure Start 12/04/24 08:11 Procedure Start Time: 08:11 Procedure Stop Time: 11:08 Select all DRAINS/GRAFTS/IMPLANTS that apply: Drains (19 Uzbek) Drain details: 19 Uzbek Tomy drains bilaterally Estimated Blood Loss: 300 cc Specimen collected: Yes Description of specimen(s) removed: Right and left breast tissue sent to pathology for review Description of surgery: Indications: Abigail Mason is a delightful 34-year-old female with symptomatic macromastia. She presents today for breast reduction. I talked her about the risks, benefits, and alternatives to the procedure, and she elected to proceed. Procedure details: Patient was correct identified in preoperative holding and marked. She was taken back to the operating room where she was administered general anesthesia and prepped and draped in sterile fashion. All proper timeouts were performed. The tumescent solution was placed in the lateral chest wall/axillary area for liposuction (300 cc on each side for stab incisions). A cookie cutter and a 15 blade scalpel were used to incise 42 mm nipple areolar complexes bilaterally. The anglin were then also scored for a Sandoval pattern superior medial breast reduction. We began the procedure on the right with de- epithelializing the superior medial pedicle with a 10 blade scalpel. Bovie electrocautery was used to develop the superior medial pedicle down to the chest wall and excised the inferior lateral and superior excess breast tissue marked for resection. It was sent to pathology and weighed 434 g. Hemostasis is obtained with Bovie electrocautery. A 19 Uzbek Tomy drain was placed. The superior medial pedicle was rotated and advanced into position, and a Sandoval pattern skin incision stapled. 4 mm Aarti cannula was then used to perform liposuction of the lateral chest wall/lateral breast curve for approximately 200 cc of Lipo aspirate. The same procedure was performed on the left side, except there was 406 g resection on the left side and approximately 200 cc of Lipo aspirate. The patient was sat up and we were happy with the symmetry. The wounds were then closed with 3-0 Monocryl deep dermal sutures followed by 3-0 Monocryl running subcuticular sutures, except around the nipple was 4-0 Monocryl deep dermal and running subcuticular. Dermabond was placed around the nipple and Prineo tape was placed on the vertical and horizontal incisions. Patient tolerated the procedure well. She was awakened and taken to the PACU in stable condition. Surgical Findings: Healthy breast tissue Well-perfused nipples at the end of the case 200 cc Lipo aspirate bilaterally from the lateral chest wall/axilla 434 g resection for the right 406 g resection from the left Complications Complications: No
[2024-12-04] MEDS: fentaNYL 100 MCG/2 ML Ampul 200 MCG IV (10:55)
--- NOTE | 2024-12-04 11:36 | PCM.POST.ANE ---
Anesthesia: Postop Eval I Current Vital Signs Temperature: 97.8 F Pulse Rate: 120 Blood Pressure: 115/88 Respiratory Rate: 20 Pulse Ox: 100 Oxygen Delivery Method: Room Air Assessment Airway patent: Yes Spontaneous unlabored respirations: Yes Mental status: Awake nausea: No Vomiting: No Anesthesia Complication: No Fluid Hydration Crystalloid volume administer (ml): 1,800 Total IV fluid infused: 1,800 Progress Note Anesthesia document: Postop Eval 1 completed: Yes
[2024-12-04] MEDS: 0.9% Normal Saline (1000mL) 1,000 ML 75 ML IV (13:10)
--- NOTE | 2024-12-04 13:34 | POSTOPAN2_ITS ---
Anesthesia Postop Eval I Sum Postop Eval Completion status Anesthesia document: Postop Eval 1 completed: Yes Anesthesia Postop Eval I Summary Anesthesia Postop Eval I Summary: Anesthesia Postop Eval I: Assessment Summary Airway patent Yes 12/04/24 11:37 HAND CHAIN [email or web address] Spontaneous unlabored Yes 12/04/24 11:37 HAND CHAIN [email or web address].SHOF respirations Mental status Awake 12/04/24 11:37 HAND CHAIN [email or web address] nausea No 12/04/24 11:37 HAND CHAIN [email or web address].SHOF Vomiting No 12/04/24 11:37 HAND CHAIN [email or web address].SHOF Anesthesia Postop Eval I: Fluid Summary Crystalloid volume administer 1,800 12/04/24 11:37 HAND CHAIN [email or web address].SHOF (ml) Colloids volume administered ( ml) Blood Product volume administered (ml) Total IV fluid infused 1,800 12/04/24 11:37 HAND CHAIN [email or web address].SHOF Anesthesia Postop Eval I: Summary Notes Anesthesia Complication No 12/04/24 11:37 HAND CHAIN [email or web address].SHOF Anesthesia Complication Comment: Post-operative progress note Anesthesia: Postop Eval II Evaluation Mental status: Awake Pain Level: 1 nausea: No Vomiting: No
--- NOTE | 2024-12-04 13:34 | PCM.POSTANE2 ---
Anesthesia Postop Eval I Sum Postop Eval Completion status Anesthesia document: Postop Eval 1 completed: Yes Anesthesia Postop Eval I Summary Anesthesia Postop Eval I Summary: Anesthesia Postop Eval I: Assessment Summary Airway patent Yes 12/04/24 11:37 DIRECTOR OF LABOR RELATIONS.[email or web address] Spontaneous unlabored Yes 12/04/24 11:37 DIRECTOR OF LABOR RELATIONS.SHOF respirations Mental status Awake 12/04/24 11:37 DIRECTOR OF LABOR RELATIONS.SHOF nausea No 12/04/24 11:37 DIRECTOR OF LABOR RELATIONS.SHOF Vomiting No 12/04/24 11:37 DIRECTOR OF LABOR RELATIONS.SHOF Anesthesia Postop Eval I: Fluid Summary Crystalloid volume administer 1,800 12/04/24 11:37 DIRECTOR OF LABOR RELATIONS.SHOF (ml) Colloids volume administered ( ml) Blood Product volume administered (ml) Total IV fluid infused 1,800 12/04/24 11:37 DIRECTOR OF LABOR RELATIONS.SHOF Anesthesia Postop Eval I: Summary Notes Anesthesia Complication No 12/04/24 11:37 DIRECTOR OF LABOR RELATIONS.SHOF Anesthesia Complication Comment: Post-operative progress note Anesthesia: Postop Eval II Evaluation Mental status: Awake Pain Level: 1 nausea: No Vomiting: No
--- NOTE | 2024-12-04 14:04 | SUR.PHASEII ---
PATIENT GOT UP TO THE BATHROOM AND VOIDED WITHOUT DIFFICULTY. PAIN MEDICATION GIVEN. BEVERAGE GIVEN. NO OTHER NEEDS AT THIS TIME.
--- NOTE | 2024-12-04 15:01 | SUR.PHASEII ---
dr cheung down to see pt- look over incicions and dressings- wants a larger surgical bra on pt- or called for this
--- NOTE | 2024-12-04 22:56 | NURSING ---
Pt refusing IV fluids-states she "feels too puffy." Pt drinking adequate PO fluids and voiding frequently.
[2024-12-05 00:44] LABS: Hematocrit 28.1 % (37-47); Hemoglobin 8.7 g/dL (12.0-15.0); Mean Corp Hgb Conc 31.0 g/dL (32-36); Mean Corpuscular Volume 61.9 fL (81-99); Mean Platelet Vol. 10.9 fl (6.2-12.0); Platelet Count 242 K/mm3 (150-450); RBC Distribution Width CV 16.9 % (11.6-14.6); RBC Distribution Width SD 36.4 fl (35.1-43.9); Red Blood Count 4.54 M/mm3 (4.2-5.4); White Blood Count 18.1 K/mm3 (4.4-11.0)
[2024-12-05 01:07] VITALS: BP 112/48; PULSE 85; RESP 18; TEMP 36.7; O2SAT 100
[2024-12-05 06:23] VITALS: BP 104/52; PULSE 76; RESP 16; TEMP 36.4; O2SAT 100
--- NOTE | 2024-12-05 08:11 | PCM.DC.SUM ---
Providers Date of Admission: 12/04/24 Primary Care Physician: EFREN VerdeC Reason For Visit: Breast reduction with possible free nipple graft Diagnosis Discharge Diagnosis (1) Macromastia: Status: Acute Code(s): N62 - Hypertrophy of breast Plan POD1 bilateral breast reduction Pain well controlled. Ambulating, tolerating oral intake Urinating well and passing gas. Meets discharge criteria with follow up next . Medications at Discharge Home Medications metformin 500 mg tablet 500 mg PO BID 11/20/24 oxycodone 5 mg tablet 5 mg PO Q4H PRN PRN pain 7 days #42 tabs 12/05/24 Hospital Course Operations - (Bilateral breast reduction with Dr. Roche on 12/04/2024) Summary of Care Provided Minutes Spent on Discharge: 30 Hospital Course: Patient underwent above-mentioned surgery without apparent intraoperative complications and had intraoperative bilateral drain placement. Patient was kept overnight for pain control and close monitoring. There was possible concern of left nipple color changes however it was due to dim lighting. Patient was seen this morning with Dr. Roche and patient's mother at bedside. Pain was well-controlled and drain output was 170 mL total. Patient has been ambulating without difficulty, her vitals are normal and stable. Her CBC this morning demonstrated WBC of 18 likely reactive from surgery, hemoglobin 8.7. She is tolerating oral intake, urinating, passing gas and her pain is well-controlled. She needs to discharge criteria today. She will be discharged home with oxycodone as needed and is encouraged to continue ambulating will continue to and activity restrictions. Physical Exam Narrative Afebrile, normotensive, heart rate 76. Seen in chair in no acute distress Bra in place, bilateral breast and nipple incision clean, dry, intact. Strikethrough bleeding of left PARAMJIT drain site. No erythema, ecchymosis, no palpable fluid collection. Sensation preserved on both nipples. Bilateral APRAMJIT drains are intact with total output of 170 mL total of serosanguineous drainage. Leave in place. Weight / BMI Weight Weight: 176 lb 5.917 oz Body Mass Index (BMI) 31.2 ABG / Lab / Microbiology Data 12/05/24 00:27 11/07/24 10:41 Laboratory: Laboratory Results - last 24 hr 12/05/24 00:27: WBC 18.1 H, RBC 4.54, Hgb 8.7 L, Hct 28.1 L, MCV 61.9 L, MCH 19.2 L, MCHC 31.0 L, RDW Std Deviation 36.4, RDW Coeff of Lana 16.9 H, Plt Count 242, MPV 10.9 D/C Instructions DC O2, CPAP, BIPAP Needs Home O2 Discharge instructions: No Meaningful Use Info Meaningful Use Meaningful Use Diagnoses (Choose all that apply): None applicable Discharge Plan Admission Admit Date/Time: 12/04/24 15:17 Primary Reason for Your Visit: Bilateral breast reduction Attending Provider: Rohith Roche Primary Care Provider: Maye Moore Instructions Additional Instructions / Restrictions: Operations Performed: Bilateral breast reduction Instructions for My Care at Home The following instructions will help you know what to expect in the days following surgery. These are general instructions. Your surgeon and therapist may give you special instructions, which vary to some degree based on your specific procedure -- follow those as directed. Do not, however, hesitate to call if you have any questions or concerns. Splint Care/Dressing Care/Wound Care Change ABD pads daily. Record output from drains on both sides. OK to shower starting tomorrow. No soaking, scrubbing, submerging incision. Let soap and water run off the incision and pat dry gently. Avoid smoking or other tobacco products. Smoking tobacco impairs wound healing and increases the risks of post-operative complications. [ ] Activities For the first 4 weeks after surgery, try to balance your activity, allowing time for rest. Avoid lifting, pushing, or pulling anything over [address] or operate heavy machinery within 24 hrs of surgery or while taking narcotic pain medication. Pain Control/Medications You will be prescribed oxycodone as needed for pain. If you received an anesthetic block, your hand or arm may be numb for several hours. You will be discharged to home with medications, including an oral pain medication (analgesic). Rest and elevation are still one of the most important factors for pain control. Take your pain medication as needed, but do not wait for the pain to become out of control. For severe pain, you may take prescription pain medication as directed, but please note that this may also contain Tylenol (e.g. Percocet). Do not take more than 4000mg of Tylenol (acetaminophen) from all sources daily. Pain medication may cause some lethargy, nausea, and or constipation. You should not drive/operate dangerous machinery while taking these medications. If these or other symptoms become significantly problematic, please your surgeon's office. If prescribed oral antibiotics (Keflex, Clindamycin, or others), please take prescription for full duration as instructed. You should not have any pills remaining once completed (refills are written for your convenience should the course need to be extended, but generally they are not required). Diet (what I can eat): Resume normal diet as before Follow up You will be seen Next 12/12 Follow-up appointment reminders: (A list of any scheduled appointments is at the end of this document) At your earliest convenience, please call [phone] to confirm/schedule a follow-up appointment with [ ] in clinic. When to call your surgeon: If any signs of surgical site infection develop: redness, pus, pain, increased swelling or foul odor at the incision site, fever, cold and clammy skin, or confusion. Consistent temperature above 101°F (38.3°C). The affected area gets swollen or much more painful. You have excessive bleeding from surgical site (soaking through). If you experience difficulty breathing and/or shortness of breath, seek immediate medical attention. If experiencing any of the above complications or if you have any questions, call [phone] Discharge Orders/Prescriptions Prescriptions: New oxycodone 5 mg Tablet 5 mg PO Q4H PRN PRN (Reason: pain) 7 Days Qty: 42 0RF Rx Instructions: Take as needed for pain for acute postoperative pain No Action metformin 500 mg tablet 500 mg PO BID Referrals / Follow Up: Maye Moore, [facility] [Primary Care Provider, Internal Medicine] Disposition Disposition (needs filled in before D/C Order can be placed): Home, Self Care Charges/Coding Procedures Integumentary [id number]: [id number] Global Visit
[2024-12-05 08:54] VITALS: BP 105/47; PULSE 75; RESP 16; TEMP 36.6; O2SAT 98
--- NOTE | 2024-12-05 11:20 | CASEMGMT ---
Dx:breast reduction with possible free nipple graft LACE:1 6-Clicks:24 Medical record reviewed and patient evaluated for identification of discharge planning needs. Based on this review, at this time criteria are not present to indicate a need for discharge planning. Will remain available to assist with discharge planning needs as identified or requested. Pt has dc'd from floor and has left the building. Pt received education on drain care.
== END 2024-12-05 08:49 | disposition home or self-care (01) ==
LOC: SDC 15:41 → MS3 12-05 08:11
PROVIDERS: Admitting Provider Surgery Plastic and Reconstructive Surgery; PCP Nurse Practitioner Family; Referring Provider Surgery Plastic and Reconstructive Surgery; Visit Provider Surgery Plastic and Reconstructive Surgery
DX: N62 Hypertrophy of breast (principal); Z87.891 Personal history of nicotine dependence; D56.3 Thalassemia minor; E28.2 Polycystic ovarian syndrome; Z79.899 Other long term (current) drug therapy; N64.81 Ptosis of breast
CPT/HCPCS: 19318; 00402; 36415; 80053; 83036; 85025; 85027; 88305; 99221; G0378; J2405